=== PATIENT | male | born 1970 | race Caucasian/White ===

== ENCOUNTER 2023-04-28 17:37 | Inpatient (IN) | payer OTHER ==
[2023-04-28 18:44] LABS: Absolute Lymphocytes (CBC) 0.9 K/uL (0.7-4.9); Hematocrit 37.3 % (39.6-49.0); Lymphocytes % 15.7 % (15.3-44.8); MCV 95.3 fL (80-100); MPV 8.4 fL (7.6-11.3); Platelets 94 thou/uL (152-406); RBC Red Blood Cell Count 3.91 M/uL (4.33-5.43)
[2023-04-28] MEDS ORDERED: PANTOPRAZOLE 40 MG INJ ONE (18:48)
[2023-04-28] MEDS ORDERED: ONDANSETRON 4 MG/2 ML VIAL ONE (18:48)
[2023-04-28] MEDS ORDERED: NA CHLORIDE 0.9% 1,000 ML ONE ×3 (18:48→21:24)
[2023-04-28] MEDS ORDERED: FENTANYL CITR 100 MCG/2 ML ONE ×2 (18:48→20:34)
[2023-04-28 19:00] LABS: Protime INR 1.55
[2023-04-28 19:03] LABS: Albumin 3.3 g/dL (3.4-5.0); Bilirubin Direct 0.5 mg/dL (0-0.2); Bilirubin Indirect, Calculated 0.6 mg/dL (0.2-0.8); Bilirubin Total 1.1 mg/dL (0.2-1.0); Magnesium 1.7 mg/dL (1.6-2.4); Potassium 3.6 mEq/L (3.5-5.1); Protein, Total 8.6 g/dL (6.4-8.2); Troponin High Sensitivity 4.1 pg/mL (<58.9); White Blood Cell Scan OK (OK)
[2023-04-28 19:04] LABS: Blood Morphology Comment NOT SEEN (NOT SEEN); Platelet Estimate DECR
--- NOTE | 2023-04-28 19:12 | RAD REPORT ---
EXAM DESCRIPTION: RAD - Chest Single View - 04/28/2023 7:03 pm CLINICAL HISTORY: vomiting Chest pain. COMPARISON: <Comparisons> FINDINGS: Portable technique limits examination quality. The lungs are mildly emphysematous but grossly clear. The heart is normal in size. No displaced fract ures. IMPRESSION: No acute intrathoracic process suspected.
[2023-04-28] MEDS ORDERED: METOCLOPRAMIDE 10 MG/2mL INJ ONE (20:04)
[2023-04-28] MEDS ORDERED: LORazepam 2 MG/ML VIAL ONE (20:05)
--- NOTE | 2023-04-28 20:31 | RAD REPORT ---
EXAM DESCRIPTION: CT - Angio Aorta For Dissection - 04/28/2023 8:05 pm CLINICAL HISTORY: Chest pain radiating to the back. back pain;Abd pain COMPARISON: <Comparisons> TECHNIQUE: CT angiography of the aorta was performed with MIPs. All CT scans are performed using dose optimization technique as appropriate and may include automated exposure control or mA/KV adjustment according to patient size. FINDINGS: A left aortic arch is present with normal branching pattern of the great vessels.No acute aortic finding is seen such as aneurysm, penetrating ulcer or dissection. The celiac axis, SMA, ROSALIO and renal arteries are patent. No evidence of pulmonary embolism. Prominent diffuse emphysema. Several arterial phase enhancing liver lesions are present, the largest is slightly the anterior righ t lobe measuring 8 mm liver size is mildly prominent with subtle nodular contour which may indicate e aminah cirrhosis. Recannulized periumbilical vein is present.There is a 31 x 23 mm rounded mass is pres ent abutting the pancreatic head with a internal fluid density/cystic appearance. The spleen is mildly prominent. Pancreatic parenchyma appears unremarkable. Small stones are present in the gallbladder. No bowel obstruction, free fluid or abscess.Several mildly thickened small bowel loops are present in the left abdomen.No pathologic enlarged lymphadenopathy identified. No fracture or worrisome bone lesion seen. IMPRESSION: No acute aortic finding is demonstrated. 3 cm rounded cystic appearing mass abutting the pancreatic head is of unclear etiology. Recommend MRI of the abdomen for further evaluation. Liver size is prominent with a diffuse fatty liver pattern. Slight nodular appearance to the right lo be of the liver contour may indicate early cirrhosis. Several small enhancing arterial phase liver le sions are seen, nonspecific. These may also be assessed on MRI utilizing liver protocol. Several thickened small bowel loops in the left abdomen could represent portal enteropathy and are no nspecific. Cholelithiasis.
[2023-04-28] MEDS ORDERED: HYDROMORPHONE HCL 1 MG/ML INJ ONE (21:24)
--- NOTE | 2023-04-28 21:42 | RAD REPORT ---
EXAM DESCRIPTION: US - Abdomen Exam Limited - 04/28/2023 9:29 pm CLINICAL HISTORY: EPIGASTRIC PAIN COMPARISON: Angio Aorta For Dissection dated 04/28/2023 FINDINGS: The gallbladder demonstrates tiny stones. No pericholecystic fluid or gallbladder wall thi ckening. The common bile duct is normal measuring 4 mm. The liver demonstrates no findings of intrahepatic biliary dilatation. IMPRESSION: Tiny echogenic stones are present in the gallbladder.
[2023-04-28 21:55] LABS: Barbiturates NEGATIVE (NEGATIVE); Benzodiazepines NEGATIVE (NEGATIVE); Cocaine NEGATIVE (NEGATIVE); METHAMPHETAM NEGATIVE (NEGATIVE); Methadone NEGATIVE (NEGATIVE); Opiates NEGATIVE (NEGATIVE); Phencyclidine NEGATIVE (NEGATIVE); Specific Gravity > 1.030 (1.005-1.030); THC Cannibis NEGATIVE (NEGATIVE); Urine Bacteria None Seen /HPF (<20); Urine Bilirubin NEGATIVE (Negative); Urine Blood Negative (Negative); Urine Clarity Clear (Clear); Urine Color Light-Yellow (Yellow); Urine Glucose NEGATIVE (Negative); Urine Protein NEGATIVE (Negative); Urine RBC None Seen /HPF (None Seen); Urine Urobilinogen Normal (Normal); Urine pH 6.5 (5.0-7.0)
--- NOTE | 2023-04-28 22:11 | ER ---
Nurse's Notes [facility] Name: Larry Whitaker Age: 53 yrs Sex: Male : 1970 Arrival Date: 04/28/2023 Time: 17:37 Bed 20 Private MD: Diagnosis: Other acute pancreatitis without necrosis or infection;Other cholelithiasis without obstruction;Nausea with vomiting, unspecified Presentation: 04/28 17:57 Chief complaint: Patient states: Right abdominal/flank pain for the last 20 minutes nj1 along with vomiting. Denies diarrhea. Coronavirus screen: Vaccine status: Patient reports being unvaccinated. Ebola Screen: Patient denies travel to an Ebola-affected area in the 21 days before illness onset. Initial Sepsis Screen: Does the patient meet any 2 criteria? No. Patient's initial sepsis screen is negative. Does the patient have a suspected source of infection? No. Patient's initial sepsis screen is negative. Risk Assessment: Do you want to hurt yourself or someone else? Patient reports no desire to harm self or others. Onset of symptoms was April 28, 2023 at 17:30. 17:57 Method Of Arrival: Ambulatory [facility] 17:57 Acuity: JOSE 3 nj1 Historical: - Allergies: 18:08 Toradol; nj1 - PMHx: 18:08 Asthma; nj1 - Immunization history:: Client reports having NOT received the Covid vaccine. - Social history:: Smoking status: Patient reports the use of cigarette tobacco products, smokes one pack cigarettes per day. Screenin:00 [facility] ED Fall Risk Assessment (Adult) History of falling in the last 3 months, nv1 including since admission No falls in past 3 months (0 pts) Confusion or Disorientation No (0 pts) Intoxicated or Sedated No (0 pts) Impaired Gait No (0 pts) Mobility Assist Device Used No (0 pt) Altered Elimination No (0 pt) Score/Fall Risk Level 0 - 2 = Low Risk Maintained a safe environment, Hourly rounding (assess needs \T\ fall precautionary measures) done, Used ambulatory aids as needed (educated on \T\ assisted with). Abuse screen: Denies threats or abuse. Nutritional screening: No deficits noted. Tuberculosis screening: No symptoms or risk factors identified. Assessment: 18:00 General: Appears uncomfortable, unkempt, well developed, well nourished, Behavior is me1 cooperative, appropriate for age, anxious, Reports RUQ abdominal pain with nausea that started this evening. hx of gallstones. Pain:. 18:00 Pain: Complains of pain in right upper quadrant Pain does not radiate. Pain radiates to me1 back Pain currently is 10 out of 10 on a pain scale. Quality of pain is described as sharp, shooting, Pain began suddenly, 2 hours ago. Is continuous. Neuro: Level of Consciousness is awake, alert, obeys commands, Oriented to person, place, time, situation, Appropriate for age. Cardiovascular: Capillary refill < 3 seconds Patient's skin is warm and dry. Respiratory: Airway is patent Respiratory effort is even, unlabored, Respiratory pattern is regular, symmetrical. GI: Abdomen is flat, Pt is actively vomiting bile, Bowel sounds present X 4 quads. Abd is soft X 4 quads Reports upper abdominal pain, nausea, vomiting, since earlier this afternoon. 04/29 07:44 Reassessment: attempted to call report to CRYSTAL Horn on 2nd floor. stated he will call nv kc6 back. 08:13 Reassessment: attempted to call report to 2nd floor. no answer at this time. [facility] Vital Signs: 04/28 17:57 BP 118 / 59; Pulse 66; Resp 20; Temp 97.7(O); Pulse Ox 100% on R/A; Weight 70.31 kg; nj1 Height 6 ft. 1 in. ; Pain 10/10; 19:00 BP 98 / 72; Pulse 80; Resp 20; Pulse Ox 100% on R/A; me1 20:27 BP 131 / 78; Pulse 76; Resp 18; Pulse Ox 100% on R/A; me1 20:56 BP 125 / 81; Pulse 71; Resp 18; Pulse Ox 100% on R/A; me1 22:19 BP 115 / 75; Pulse 82; Resp 17; Pulse Ox 100% on R/A; Pain 4/10; me1 23:26 BP 135 / 73; Pulse 80; Resp 18; Pulse Ox 100% on R/A; me1 17:57 Body Mass Index 20.45 (70.31 kg, 185.42 cm) nj 17:57 Pain Scale: Adult nj1 22:19 Pain Scale: Adult nv1 ED Course: 17:40 Patient arrived in ED. mg5 17:44 Benny Matute PA is PHCP. cp 17:44 Sergio Fallon DO is Attending Physician. cp 18:00 Patient has correct armband on for positive identification. Bed in low position. Call me1 light in reach. Side rails up X2. Provided Education on: POC. Verbalized understanding. . 18:00 No provider procedures requiring assistance completed. me1 18:08 Triage completed. nj1 18:08 Arm band placed on. nj1 18:19 Radha Uribe, CRYSTAL is Primary Nurse. me1 18:30 Inserted saline lock: 20 gauge in right antecubital area, using aseptic technique. me1 18:30 Lactate w/ 2H reflex if indic. Sent. me1 18:31 Lipase Sent. me1 18:31 Basic Metabolic Panel Sent. me1 18:31 CBC with Diff Sent. me1 18:31 LFT's Sent. me1 18:31 Magnesium Sent. me1 18:31 Troponin HS Sent. me1 19:05 XRAY Chest (1 view) In Process Unspecified. EDMS 19:19 CT Aorta for Dissection Sent. me1 20:07 CT Aorta for Dissection In Process Unspecified. EDMS 20:[address] Valdivia to call ER for consult. sp 21:31 US Abdomen Limited In Process Unspecified. EDMS 22:09 Constantino Saini MD is Hospitalizing Provider. cp 04/29 07:07 Report given to Keily ROJAS. tm6 08:25 Patient admitted, IV remains in place. kc6 Administered Medications: 04/28 18:47 Drug: Pantoprazole IVP 40 mg IVP once Route: IVP; Site: right antecubital; me1 19:20 Follow up: Response: No adverse reaction me1 18:47 Drug: NS 0.9% IV 1000 ml IV at 1 bolus Per protocol; 1000 mL bolus Route: IV; Rate: 1 me1 bolus; Site: right antecubital; 21:07 Follow up: IV Status: Completed infusion; IV Intake: 1000ml me1 18:47 Drug: fentaNYL (PF) IVP 25 mcg IVP once Route: IVP; Site: right antecubital; me1 19:20 Follow up: Response: No adverse reaction; Pain is unchanged, physician notified me1 18:48 Drug: Ondansetron IVP 4 mg IVP once; over 2 minutes Route: IVP; Site: right antecubital;me1 19:20 Follow up: Response: No adverse reaction me1 18:57 Drug: NS 0.9% IV 1000 ml IV at 1 bolus Per protocol; 1000 mL bolus Route: IV; Rate: 1 me1 bolus; Site: right antecubital; 21:07 Follow up: IV Status: Completed infusion; IV Intake: 1000ml me1 20:26 Drug: fentaNYL (PF) IVP 25 mcg IVP once Route: IVP; Site: right antecubital; me1 21:17 Follow up: Response: No adverse reaction; Pain is unchanged, physician notified me1 21:17 Drug: HYDROmorphone IVP 1 mg IVP once Route: IVP; Site: right antecubital; me1 22:09 Follow up: Response: No adverse reaction; Pain is decreased me1 21:17 Drug: NS 0.9% IV 1000 ml IV at 125 ml/hr continuous Route: IV; Rate: 125 ml/hr; Site: nv1 right antecubital; 22:13 Drug: Piperacillin-Tazobactam IVPB 3.375 grams IVPB once over 60 mins; (mix in NS 100 me1 mL) Route: IVPB; Infused Over: 60 mins; Site: right antecubital; 23:11 Follow up: IV Status: Completed infusion; IV Intake: 100ml me1 23:13 Follow up: Response: No adverse reaction me1 22:25 Drug: Nicoderm CQ Transdermal Patch 21 mg/24 hr 1 patches Transdermal once Route: me1 Transdermal; Site: anterior chest wall; Medication: 18:00 VIS not applicable for this client. me1 Intake: 21:07 IV: 1000ml; Total: 1000ml. me1 21:07 IV: 1000ml; Total: 2000ml. me1 23:11 IV: 100ml; Total: 2100ml. me1 Outcome: 22:10 Decision to Hospitalize by Provider. cp 04/29 08:24 Admitted to Med/surg accompanied by tech, via wheelchair, room 223, with chart, Report kc6 called to CRYSTAL Horn Condition: good Instructed on the need for admit, 09:11 Patient left the ED. kc6 Signatures: Dispatcher [facility] EDDaina Eaton Corey, PA PA cp Campbell, Kaitlyn, RN RN kc6 Isabella Salas RN RN nj1 Radha Uribe RN RN me1 Kathleen Mak mg5 Lu Parsons RN RN tm6 Corrections: (The following items were deleted from the chart) 04/28 20:52 17:57 Chief complaint: Patient states: Right abdominal/flank pain for the last 20 me1 minutes along with vomiting. Denies diarrhea. nj1
--- NOTE | 2023-04-28 22:11 | EDPHYS ---
Physician Documentation [facility] Name: Larry Whitaker Age: 53 yrs Sex: Male : 1970 Arrival Date: 04/28/2023 Time: 17:37 Bed 20 Private MD: ED Physician Sergio Fallon HPI: 04/28 18:05 This 53 yrs old Male presents to ER via Ambulatory with complaints of Low Back Pain, cp Abdominal Pain, Vomiting. 18:05 The patient presents with abdominal pain in the epigastric area, in the right upper cp quadrant. 18:05 Onset: The symptoms/episode began/occurred suddenly, 20 minute(s) ago. Severity of cp symptoms: in the emergency department the symptoms are unchanged, despite home interventions. The symptoms radiate to Associated signs and symptoms: Pertinent positives: nausea and vomiting, chest pain, shortness of breath, Pertinent negatives: constipation, diarrhea, fever, vomiting blood. Historical: - Allergies: 18:08 Toradol; nj1 - PMHx: 18:08 Asthma; nj1 - Immunization history:: Client reports having NOT received the Covid vaccine. - Social history:: Smoking status: Patient reports the use of cigarette tobacco products, smokes one pack cigarettes per day. ROS: 18:10 Constitutional: Positive for poor PO intake, Negative for body aches, chills, fever, cp 18:10 Eyes: Negative for injury, pain, redness, and discharge, cp 18:10 ENT: Negative for drainage from ear(s), ear pain, sore throat, difficulty swallowing, difficulty handling secretions, 18:10 Cardiovascular: Positive for chest pain, Negative for edema, palpitations, 18:10 Respiratory: Negative for cough, wheezing, 18:10 Abdomen/GI: Positive for abdominal pain, nausea and vomiting, Negative for constipation, hematemesis, black/tarry stool, rectal bleeding, 18:10 Back: Positive for radiated pain, of the low back area and mid back area, Negative for injury or acute deformity, decreased range of motion, 18:10 : Negative for urinary symptoms, testicular pain 18:10 Neuro: Negative for altered mental status, dizziness, headache, syncope, weakness, 18:10 All other systems are negative, Exam: 18:15 Constitutional: The patient appears in no acute distress, alert, awake, cp non-diaphoretic, non-toxic, well developed, well nourished, in obvious pain, uncomfortable, 18:15 Head/Face: Normocephalic, atraumatic. cp 18:15 Eyes: Periorbital structures: appear normal, Conjunctiva: normal, no exudate, no injection, Sclera: no appreciated abnormality, Lids and lashes: appear normal, bilaterally, 18:15 ENT: External ear(s): are unremarkable, Nose: is normal, Mouth: Lips: moist, Oral mucosa: pink and intact, moist, Posterior pharynx: Airway: no evidence of obstruction, patent, erythema, is not appreciated, exudate, is not appreciated, 18:15 Neck: ROM/movement: is normal, is supple, without pain, no range of motions limitations, no meningismus, no nuchal rigidity, 18:15 Chest/axilla: Inspection: normal, Palpation: is normal, no crepitus, no tenderness, 18:15 Cardiovascular: Rate: normal, Rhythm: regular, Edema: is not appreciated, JVD: is not appreciated, 18:15 Respiratory: the patient does not display signs of respiratory distress, Respirations: normal, no use of accessory muscles, no retractions, labored breathing, is not present, Breath sounds: are clear throughout, no decreased breath sounds, no stridor, no wheezing, 18:15 Abdomen/GI: Inspection: abdomen appears normal, Bowel sounds: active, all quadrants, Palpation: soft, in all quadrants, severe abdominal tenderness, in the epigastric area and right upper quadrant, rebound tenderness, is not appreciated, voluntary guarding, is elicited in the epigastric area and right upper quadrant, no appreciated organomegaly, 18:15 Back: pain, that is moderate, of the low back area and mid back area, ROM is painful, with all movement, 18:15 Neuro: Orientation: to person, place \T\ time. Mentation: is normal, Motor: moves all fours, strength is normal, 18:49 ECG was reviewed by the Attending Physician. cp Vital Signs: 17:57 BP 118 / 59; Pulse 66; Resp 20; Temp 97.7(O); Pulse Ox 100% on R/A; Weight 70.31 kg; nj1 Height 6 ft. 1 in. ; Pain 10/10; 19:00 BP 98 / 72; Pulse 80; Resp 20; Pulse Ox 100% on R/A; me1 20:27 BP 131 / 78; Pulse 76; Resp 18; Pulse Ox 100% on R/A; me1 20:56 BP 125 / 81; Pulse 71; Resp 18; Pulse Ox 100% on R/A; me1 22:19 BP 115 / 75; Pulse 82; Resp 17; Pulse Ox 100% on R/A; Pain 4/10; me1 23:26 BP 135 / 73; Pulse 80; Resp 18; Pulse Ox 100% on R/A; me1 17:57 Body Mass Index 20.45 (70.31 kg, 185.42 cm) nj1 17:57 Pain Scale: Adult nj1 22:19 Pain Scale: Adult me1 MDM: 17:49 Patient medically screened. cp 22:05 Data reviewed: vital signs, nurses notes, lab test result(s), EKG, radiologic studies, cp CT scan, plain films, ultrasound. 22:05 Management of patient was discussed with the following: Welfare Project Manager: DR Cardozo will cp consult on patient and requests mrcp. Dr Tovar will consult on patient. I considered the following discharge prescriptions or medication management in the emergency department Medications were administered in the Emergency Department. See MAR. Independent interpretation of the following test(s) in the Emergency Department EKG: See my EKG interpretation above. 22:10 Management of patient was discussed with the following: Hospitalist: DR Saini will cp admit to hospitalist services after discussion. 04/28 18:01 Order name: Basic Metabolic Panel; Complete Time: 19:10 04/28 19:45 Interpretation: Normal except: NA 135; GLUC 146. 04/28 18:01 Order name: CBC with Diff; Complete Time: 19:10 04/28 19:45 Interpretation: Normal except: RBC 3.91; HGB 12.3; HCT 37.3; PLT 94; RDW 16.6. 04/28 18:01 Order name: LFT's; Complete Time: 19:10 12 19:45 Interpretation: Normal except: AST 92; ALT 83; ALK 125; BILIT 1.1; BILID 0.5; TP 8.6; cp ALB 3.3; GLOB 5.3; A/G 0.6. 04/28 18: Order name: Magnesium; Complete Time: 19:10 12/10 18:01 Order name: PT-INR; Complete Time: 19:10 cp /10 18:01 Order name: Troponin HS; Complete Time: 19:10 cp /10 18:11 Order name: Lipase; Complete Time: 19:17 cp 10 18:11 Order name: Lactate w/ 2H reflex if indic.; Complete Time: 19:10 cp /10 18:50 Order name: CBC Smear Scan; Complete Time: 19:10 EDMS 04/28 19:33 Order name: ETOH Level; Complete Time: 21:45 cp /10 19:33 Order name: Blood Culture Adult (2) cp /10 19:33 Order name: AMMONIA; Complete Time: 21:45 cp /10 19:33 Order name: Urinalysis W/Microscopic; Complete Time: 21:55 cp /10 19:33 Order name: UDS; Complete Time: 21:55 cp /10 23:18 Order name: Lactate Sepsis 2 HR Follow-up EDMS 04/29 04:58 Order name: CBC with Manual Differential EDMS 04/29 05:21 Order name: Comprehensive Metabolic Panel EDMS 04/29 05:21 Order name: Lipase EDMS 04/28 18:01 Order name: XRAY Chest (1 view); Complete Time: 19:16 cp 10 19:17 Order name: CT Aorta for Dissection; Complete Time: 20:36 cp 10 20:45 Order name: US Abdomen Limited; Complete Time: 21:45 cp 10 21:45 Interpretation: Report reviewed. cp /10 18:01 Order name: EKG; Complete Time: 18:02 cp /10 18:01 Order name: Cardiac monitoring; Complete Time: 18:48 cp /10 18:01 Order name: EKG - Nurse/Tech; Complete Time: 18:48 cp /10 18:01 Order name: IV Saline Lock; Complete Time: 18:31 cp /10 18:01 Order name: Labs collected and sent; Complete Time: 18:31 cp /10 18:01 Order name: O2 Per Protocol; Complete Time: 18:31 cp /10 18:01 Order name: O2 Sat Monitoring; Complete Time: 18:31 cp /10 19:17 Order name: NPO; Complete Time: 19:19 cp EC:49 Rate is 72 beats/min. Rhythm is regular. PA interval is normal. QRS interval is normal. cp QT interval is prolonged. T waves are Inverted in lead aVR. Interpreted by me. Reviewed by me. Administered Medications: 18:47 Drug: Pantoprazole IVP 40 mg IVP once Route: IVP; Site: right antecubital; me1 19:20 Follow up: Response: No adverse reaction me1 18:47 Drug: NS 0.9% IV 1000 ml IV at 1 bolus Per protocol; 1000 mL bolus Route: IV; Rate: 1 me1 bolus; Site: right antecubital; 21:07 Follow up: IV Status: Completed infusion; IV Intake: 1000ml me1 18:47 Drug: fentaNYL (PF) IVP 25 mcg IVP once Route: IVP; Site: right antecubital; me1 19:20 Follow up: Response: No adverse reaction; Pain is unchanged, physician notified me1 18:48 Drug: Ondansetron IVP 4 mg IVP once; over 2 minutes Route: IVP; Site: right antecubital;me1 19:20 Follow up: Response: No adverse reaction me1 18:57 Drug: NS 0.9% IV 1000 ml IV at 1 bolus Per protocol; 1000 mL bolus Route: IV; Rate: 1 me1 bolus; Site: right antecubital; 21:07 Follow up: IV Status: Completed infusion; IV Intake: 1000ml me1 20:26 Drug: fentaNYL (PF) IVP 25 mcg IVP once Route: IVP; Site: right antecubital; me1 21:17 Follow up: Response: No adverse reaction; Pain is unchanged, physician notified me1 21:17 Drug: HYDROmorphone IVP 1 mg IVP once Route: IVP; Site: right antecubital; me1 22:09 Follow up: Response: No adverse reaction; Pain is decreased me1 21:17 Drug: NS 0.9% IV 1000 ml IV at 125 ml/hr continuous Route: IV; Rate: 125 ml/hr; Site: nd1 right antecubital; 22:13 Drug: Piperacillin-Tazobactam IVPB 3.375 grams IVPB once over 60 mins; (mix in NS 100 me1 mL) Route: IVPB; Infused Over: 60 mins; Site: right antecubital; 23:11 Follow up: IV Status: Completed infusion; IV Intake: 100ml me1 23:13 Follow up: Response: No adverse reaction me1 22:25 Drug: Nicoderm CQ Transdermal Patch 21 mg/24 hr 1 patches Transdermal once Route: me1 Transdermal; Site: anterior chest wall; Disposition: 19:13 I was immediately available on-site in the Emergency Department for consultation in the ms3 care of the patient. Disposition Summary: 04/28/23 22:10 Hospitalization Ordered Notes: Hospitalization Status: Inpatient Admission cp Provider: Constantino Saini cp Condition: Stable cp Problem: new cp Symptoms: have improved cp Bed/Room Type: Standard cp Location: Telemetry/MedSurg (Inpatient)(04/29/23 07:40) bd Room Assignment: [facility](04/29/23 07:40) bd Diagnosis - Other acute pancreatitis without necrosis or infection cp - Other cholelithiasis without obstruction cp - Nausea with vomiting, unspecified cp Forms: - Medication Reconciliation Form cp - SBAR form cp - Leadership Thank You Letter cp Signatures: Dispatcher [employer] EDKaryna Lewis Corey, PA PA cp Regina Carver, RN RN Sergio Abreu DO DO ms3 Isabella Salas RN RN nj1 Radha Uribe RN RN me1 Corrections: (The following items were deleted from the chart) 04/29 01:10 04/28 22:10 Telemetry/MedSurg (Inpatient) cp cg 04/29 01:10 12 22:10 cp cg 04/29 07:40 01:10 [facility] ER HOLD cg bd 07:40 01:10 ERHOLD- cg bd
[2023-04-28] MEDS ORDERED: NA CHLORIDE 0.9% 100 ML ONE (22:25)
[2023-04-28] MEDS ORDERED: PIPERACIL/TAZO 3.375 GM VIAL IV ONE (22:26)
[2023-04-28] MEDS ORDERED: NICOTINE 21 MG/PAT TD ONE (22:38)
[2023-04-28] MEDS ORDERED: ACETAMINOPHEN 325 MG TABLET PO PRN (23:25)
--- NOTE | 2023-04-28 23:29 | P.HP ---
Certification for Inpatient Patient admitted to: Inpatient With expected LOS: >2 Midnights Practitioner: I am a practitioner with admitting privileges, knowledge of patient current condition, hospital course, and medical plan of care. Services: Services provided to patient in accordance with Admission requirements found in Title 42 Section 412.3 of the Code of Federal Regulations Patient History Date of Service: 04/29/23 Reason for admission: Abdominal pain, pancreas mass, gallstones. History of Present Illness: 53-year-old male patient with medical history significant for episode of abdominal pain in the past who came to the ED with complaint of abdominal pain. Pain is located in the upper region of the abdomen with radiation to the back. Pain is rated 8-10 out of 10 in intensity and it was case scenario. No associated nausea, vomiting, fever, chills. He had a CT of the abdomen/pelvis done that showed a 3 cm pancreas mass and abdominal ultrasound revealed tiny s tones in the gallbladder. No evidence of cholecystitis. He had elevated transaminases so he was asked to be evaluated by gastroenterology and was admitted for inpatient care. Allergies ketorolac [From Toradol] Allergy (Verified 04/28/23 22:45) Hives/Rash Review of Systems General: Unremarkable Eyes: Unremarkable ENT: Unremarkable Respiratory: Unremarkable Cardiovascular: Unremarkable Gastrointestinal: Abdominal Pain Genitourinary: Unremarkable Musculoskeletal: Unremarkable Integumentary: Unremarkable Neurological: Unremarkable Physical Examination - Physical Exam General: Alert, Oriented x3 HEENT: Atraumatic Neck: Supple Respiratory: Normal air movement Cardiovascular: Regular rate/rhythm, Normal S1 S2 Gastrointestinal: Soft and benign Musculoskeletal: No swelling Neurological: Normal speech, Normal strength at 5/5 x4 extr - Studies Laboratory Data (last 24 hrs) 04/28/23 04/28/23 04/28/23 18:28 18:28 18:28 WBC 5.70 Hgb 12.3 L Hct 37.3 L Plt Count 94 L PT 16.8 H INR 1.55 Sodium Potassium BUN Creatinine Glucose Magnesium Total Bilirubin AST ALT Alkaline Phosphatase Lipase 415 H 04/28/23 18:28 WBC Hgb Hct Plt Count PT INR Sodium 135 L Potassium 3.6 BUN 10 Creatinine 0.92 Glucose 146 H Magnesium 1.7 Total Bilirubin 1.1 H AST 92 H ALT 83 H Alkaline Phosphatase 125 H Lipase Assessment and Plan - Plan Pancreatitis: Patient has elevated lipase, imaging finding of pancreas mass and gallstones. We think he has gallstone pancreatitis. Gastroenterology consult placed Continue pain control with Dilaudid. Continue IV lactated Ringer's for hydration purposes Transaminitis: Will have gastroenterology evaluate patient for episode of gallstones causing issues in the liver. Cholelithiasis: Abdominal ultrasound confirmed gallstones without cholecystitis. Pain control with as needed Dilaudid to be continued. IV hydration to be continued. Mis Manager to evaluate. Prophylaxis: Lovenox for DVT prophylaxis CODE STATUS: Full code Disposition: We will treat his abdominal pain and manage his pancreatitis and will be discharged once he is cleared by gastroenterology service. - Advance Directives Does patient have a Living Will: No Does patient have a Durable POA for Healthcare: No
[2023-04-28] MEDS: Ringers Lactate 1,000 ML IV SCH (23:45)
[2023-04-29] MEDS ORDERED: Ringers Lactate 1,000 ML IV ONE ×2 (00:01→07:37)
[2023-04-29] MEDS: HYDROMORPHONE HCL 0.5 MG/0.5 ML INJ IV PRN ×3 (03:34→22:36)
[2023-04-29] MEDS ORDERED: HYDROMORPHONE HCL 0.5 MG/0.5 ML INJ ONE ×2 (03:37→07:37)
[2023-04-29 04:57] LABS: Absolute Lymphocytes (CBC) 1.2 K/uL (0.7-4.9); Hematocrit 32.8 % (39.6-49.0); Lymphocytes % 22.1 % (15.3-44.8); MCV 95.3 fL (80-100); MPV 8.4 fL (7.6-11.3); Platelets 80 thou/uL (152-406); RBC Red Blood Cell Count 3.44 M/uL (4.33-5.43)
[2023-04-29 05:12] LABS: Smudge Cells 1
[2023-04-29 05:13] LABS: Blood Morphology Comment NOT SEEN (NOT SEEN); Platelet Estimate DECR
[2023-04-29 05:15] LABS: Albumin 2.8 g/dL (3.4-5.0); Bilirubin Total 1.1 mg/dL (0.2-1.0); Potassium 3.7 mEq/L (3.5-5.1); Protein, Total 7.3 g/dL (6.4-8.2)
[2023-04-29] MEDS: Ringers Lactate 1,000 ML IV SCH ×4 (07:29→23:32)
[2023-04-29] MEDS ORDERED: ENOXAPARIN 40 MG/0.4 ML SQ SCH (09:00)
--- NOTE | 2023-04-29 09:29 | P.PN ---
Subjective Date of Service: 04/29/23 Chief Complaint: Abdominal pain, pancreas mass, gallstones. RUQ tenderness pain 4/10, improved, no reported NVD. currently NPO Physical Examination - Physical Exam General: Alert, Oriented x3 HEENT: Atraumatic Neck: Supple Respiratory: Normal air movement Cardiovascular: Regular rate/rhythm, Normal S1 S2 Gastrointestinal: RUQ tenderness, no rebound tenderness Musculoskeletal: No swelling Neurological: Normal speech, Normal strength at 5/5 x4 extr Review of Systems per HPI Physical Examination - Vital Signs Temperature: 98.5 F Blood Pressure: 137/90 Pulse: 81 Respirations: 17 Pulse Ox (%): 100 - Studies Laboratory Data (last 24 hrs) 04/28/23 04/28/23 04/28/23 18:28 18:28 18:28 WBC 5.70 Hgb 12.3 L Hct 37.3 L Plt Count 94 L PT 16.8 H INR 1.55 Sodium Potassium BUN Creatinine Glucose Magnesium Total Bilirubin AST ALT Alkaline Phosphatase Lipase 415 H 04/28/23 18:28 WBC Hgb Hct Plt Count PT INR Sodium 135 L Potassium 3.6 BUN 10 Creatinine 0.92 Glucose 146 H Magnesium 1.7 Total Bilirubin 1.1 H AST 92 H ALT 83 H Alkaline Phosphatase 125 H Lipase Assessment And Plan - Plan - Plan Pancreatitis: Patient has elevated lipase, imaging finding of pancreas mass and gallstones. We think he has gallstone pancreatitis. Gastroenterology consult placed Continue pain control with Dilaudid. Continue IV lactated Ringer's for hydration purposes Trend lipase, trending down 450-140 Transaminitis: Will have gastroenterology evaluate patient for episode of gallstones causing issues in the liver. Cholelithiasis: Abdominal ultrasound confirmed gallstones without cholecystitis. Pain control with as needed Dilaudid to be continued. IV hydration to be continued. Surgery consulted n.p.o. after midnight 03/31/2023 MRCP IMPRESSION: Findings suggestive of acute cholecystitis. Gallbladder sludge and small layering stones near the gallbladder neck. Mild free perihepatic ascites. Pancreatic head 3.0 cm cyst, appears to have proteinaceous content, with no suspicious enhancement. Per the ACR white paper for incidental pancreatic cystic lesions, this is considered low risk for pancreatic malignancy by imaging criteria. A six-month follow-up pancreatic protocol MRI is recommended for evaluation, for a total period of 2 years initially. No intra or extrahepatic biliary ductal dilation. The Prophylaxis: Lovenox for DVT prophylaxis CODE STATUS: Full code NPO after MN Disposition: We will treat his abdominal pain and manage his pancreatitis and will be discharged once he is cleared by gastroenterology, surgery service. Discharge Plan: Home - Code Status/Comfort Care Code Status: Full Code Physician Review: Patient Assessed, Agree with Above Assessment and Plan Critical Care: No Time Spent Managing PTS Care (In Minutes): 35
[2023-04-29] MEDS: NICOTINE 21 MG/PAT TD SCH (09:39)
[2023-04-29] MEDS ORDERED: DIPHENHYDRAMINE 50 MG/ML VIAL IV ONE (10:15)
--- NOTE | 2023-04-29 10:29 | RAD REPORT ---
EXAM DESCRIPTION: MRI - Cholangiogram, MRI abdomen with and without contrast - 04/29/2023 9:04 am CLINICAL HISTORY: elevated liver enzymes, cholelithiasis COMPARISON: Abdomen WWo Cont dated 04/29/2023; Abdomen Exam Limited dated 04/28/2023; Angio Aorta F or Dissection dated 04/28/2023 TECHNIQUE: Multiplanar multisequence MRI of the abdomen, obtained before after intravenous adminis tration of 16 mL MultiHance. MRCP sequences were also obtained. FINDINGS: The gallbladder is mildly distended. [id number] pericholecystic fluid. Mild mucosal hyperenhancement throughout the gallbladder. Layering intrinsically T1 hyperintense sludge within the lumen. Small filling defects present dependently near the neck suggestive of small calculi. Calcific densities near the fundus seen on CT show no correlate on MRI. No intrahepatic biliary ductal dilation. Common bile duct is at the upper limit of normal in caliber, 7 millimeter. No filling defects to sugg est choledocholithiasis. Smooth tapering near the ampulla. Main pancreatic duct is not dilated. Mild perihepatic ascites, extending into the Morison pouch. Ovoid well-circumscribed thin-walled 3.0 x 2.2 cm cyst in the posterior pancreatic head demonstrates homogeneous T1 and T2 hyperintense signal, with no appreciable enhancement on the postcontrast phases . No appreciable wall thickening or nodular solid components. The cyst does not appear to communicate with the pancreatic duct or common bile duct. The visualized aspects of the liver, spleen, adrenal glands, and kidneys are otherwise unremarkable, apart from small right parapelvic renal cysts. Visualized aspects of the bowel are unremarkable. No suspicious osseous lesions. Trace right pleural effusion. IMPRESSION: Findings suggestive of acute cholecystitis. Gallbladder sludge and small layering stones near the gallbladder neck. Mild free perihepatic ascites. Pancreatic head 3.0 cm cyst, appears to have proteinaceous content, with no suspicious enhancement. P er the ACR white paper for incidental pancreatic cystic lesions, this is considered low risk for panc reatic malignancy by imaging criteria. A six-month follow-up pancreatic protocol MRI is recommended f or evaluation, for a total period of 2 years initially. No intra or extrahepatic biliary ductal dilation.
--- NOTE | 2023-04-29 11:05 | RAD REPORT ---
EXAM DESCRIPTION: MRI - Abdomen WWo Cont - 04/29/2023 9:04 am CLINICAL HISTORY: eval of pancreas head cystic mass COMPARISON: Cholangiogram dated 04/29/2023; Abdomen Exam Limited dated 04/28/2023; Angio Aorta For Dissection dated 04/28/2023 TECHNIQUE: Multiplanar multisequence MRI of the abdomen, obtained before after intravenous administr ation of 16 mL MultiHance. MRCP sequences were also obtained. FINDINGS: The gallbladder is mildly distended. [id number] pericholecystic fluid. Mild mucosal hyperenhancement throughout the gallbladder. Layering intrinsically T1 hyperintense sludge within the lumen. Small filling defects present dependently near the neck suggestive of small calculi. Calcific densities near the fundus seen on CT show no correlate on MRI. No intrahepatic biliary ductal dilation. Common bile duct is at the upper limit of normal in caliber, 7 millimeter. No filling defects to sugg est choledocholithiasis. Smooth tapering near the ampulla. Main pancreatic duct is not dilated. Mild perihepatic ascites, extending into the Morison pouch. Ovoid well-circumscribed thin-walled 3.0 x 2.2 cm cyst in the posterior pancreatic head demonstrates homogeneous T1 and T2 hyperintense signal, with no appreciable enhancement on the postcontrast phases . No appreciable wall thickening or nodular solid components. The cyst does not appear to communicate with the pancreatic duct or common bile duct. The visualized aspects of the liver, spleen, adrenal glands, and kidneys are otherwise unremarkable, apart from small right parapelvic renal cysts. Visualized aspects of the bowel are unremarkable. No suspicious osseous lesions. Trace right pleural effusion. IMPRESSION: Findings suggestive of acute cholecystitis. Gallbladder sludge and small layering stones near the gallbladder neck. Mild free perihepatic ascites. Pancreatic head 3.0 cm cyst, appears to have proteinaceous content, with no suspicious enhancement. P er the ACR white paper for incidental pancreatic cystic lesions, this is considered low risk for panc reatic malignancy by imaging criteria. A six-month follow-up pancreatic protocol MRI is recommended f or evaluation, for a total period of 2 years initially. No intra or extrahepatic biliary ductal dilation.
[2023-04-30 01:08] VITALS: BMI 20.5
[2023-04-30 03:29] LABS: Absolute Lymphocytes (CBC) 1.1 K/uL (0.7-4.9); Hematocrit 31.7 % (39.6-49.0); Lymphocytes % 30.8 % (15.3-44.8); MCV 95.6 fL (80-100); MPV 8.3 fL (7.6-11.3); RBC Red Blood Cell Count 3.31 M/uL (4.33-5.43)
[2023-04-30 03:33] LABS: Platelets 83 thou/uL (152-406)
[2023-04-30 03:44] LABS: Albumin 2.7 g/dL (3.4-5.0); Bilirubin Total 1.3 mg/dL (0.2-1.0); Potassium 3.6 mEq/L (3.5-5.1)
[2023-04-30] MEDS: Ringers Lactate 1,000 ML IV SCH ×3 (06:00→21:06)
--- NOTE | 2023-04-30 08:30 | P.PN ---
Subjective Date of Service: 04/30/23 Chief Complaint: Abdominal pain, pancreas mass, gallstones. pain, nausea controlled with prn analgesics, Physical Examination - Physical Exam General: Alert, Oriented x3 HEENT: Atraumatic Neck: Supple Respiratory: Normal air movement Cardiovascular: Regular rate/rhythm, Normal S1 S2 Gastrointestinal: RUQ tenderness, no rebound tenderness Musculoskeletal: No swelling Neurological: Normal speech, Normal strength at 5/5 x4 extr Review of Systems per HPI Physical Examination - Vital Signs Temperature: 98.2 F Blood Pressure: 132/73 Pulse: 69 Respirations: 18 Pulse Ox (%): 97 Assessment And Plan - Plan - Plan Pancreatitis: Patient has elevated lipase, imaging finding of pancreas mass and gallstones. We think he has gallstone pancreatitis. Gastroenterology consult placed Continue pain control with Dilaudid. Continue IV lactated Ringer's for hydration purposes Trend lipase, trending down 450-140 Transaminitis: Will have gastroenterology evaluate patient for episode of gallstones causing issues in the liver. acute cholecytitis Cholelithiasis: Abdominal ultrasound confirmed gallstones without cholecystitis. Pain control with as needed Dilaudid to be continued. IV hydration to be continued. Surgery consulted n.p.o. after midnight 03/31/2023 Zosyn added MRCP IMPRESSION: Findings suggestive of acute cholecystitis. Gallbladder sludge and small layering stones near the gallbladder neck. Mild free perihepatic ascites. Pancreatic head 3.0 cm cyst, appears to have proteinaceous content, with no suspicious enhancement. Per the ACR white paper for incidental pancreatic cystic lesions, this is considered low risk for pancreatic malignancy by imaging criteria. A six-month follow-up pancreatic protocol MRI is recommended for evaluation, for a total period of 2 years initially. No intra or extrahepatic biliary ductal dilation. The Prophylaxis: Lovenox for DVT prophylaxis CODE STATUS: Full code NPO after MN Disposition: We will treat his abdominal pain and manage his pancreatitis and will be discharged once he is cleared by gastroenterology, surgery service. Discharge Plan: Home Plan to discharge in: 48 Hours - Code Status/Comfort Care Code Status: Full Code Physician Review: Patient Assessed, Agree with Above Assessment and Plan Critical Care: No Time Spent Managing PTS Care (In Minutes): 35
[2023-04-30] MEDS: NICOTINE 21 MG/PAT TD SCH (08:43)
[2023-04-30] MEDS: HYDROMORPHONE HCL 0.5 MG/0.5 ML INJ IV PRN ×2 (08:43→19:59)
[2023-04-30] MEDS: PIPER TAZO 3.375 GM in NA CHLORIDE 0.9% 100 ML IV SCH ×2 (08:43→17:43)
[2023-04-30] MEDS ORDERED: LIDOCAINE 2% MPF 5 ML VIAL ONE ×2 (11:03→12:54)
[2023-04-30] MEDS ORDERED: propofoL 200 MG/20 ML VIAL IV ONE ×2 (11:03→12:54)
[2023-04-30] MEDS ORDERED: MIDAZOLAM HCL 2 MG/2 ML INJ ONE ×2 (11:03→12:54)
[2023-04-30] MEDS ORDERED: ROCURONIUM 50 MG/5 ML VIAL IV ONE ×2 (11:03→12:54)
[2023-04-30] MEDS ORDERED: FENTANYL CITR 100 MCG/2 ML ONE ×2 (11:03→12:54)
[2023-04-30] MEDS ORDERED: ONDANSETRON 4 MG/2 ML VIAL ONE ×2 (11:03→12:54)
[2023-04-30] MEDS ORDERED: HYDROMORPHONE HCL 2 MG/ML inj ONE (11:11)
[2023-04-30] MEDS ORDERED: BUPIVACAINE 0.25% PF 30 ML VIAL ONE (11:12)
--- NOTE | 2023-04-30 11:25 | CON ---
Date of Consultation: 04/29/2023 Brief History Of Present Illness: The patient is a 53-year-old male with past medical history signif icant for episodes of abdominal pain for the past in the right upper quadrant epigastric region and h istory of pancreatitis with a known pancreatic cyst for approximately 5-6 years by his description. He states he has been tracking access with his primary medical doctor and has found no significant ch mingo in the area. They have attempted interventions such as a biopsy at that point, however, he has significantly low platelets of uncertain etiology and as such he has not had the area properly biopsi ed to his recollection and had this originally planned in the future after his thrombocytopenia was w orked up and . He has noted that on this particular occasion, the pain was worse in the ep igastric and right upper quadrant, which was similar to episodes before in the past, but now worse in the right upper quadrant that he has had before in the past. There is some radiation at the back, i t was 8/10 in intensity. There was no nausea, vomiting, fever, chills, or any other concomitant find ings. His pain is significantly improved, but not resolved at this point. The episode began approxi mately 2-3 days prior to his presentation at the ER on this occasion. Past Medical History: Thrombocytopenia, pancreatic cyst, gallstones. Past Surgical History: He believes he has had an ERCP or EUS, endoscopic ultrasound I should say, to evaluate his pancreas, but denies any formal abdominal surgery. Allergies: TO TORADOL. Social History: Smoking, he smokes cigarettes. He has a history of alcohol use in the past, but den ies current usage. Denies recreational drug use. He is currently unemployed. Physical Examination: At the time of my examination, General: He is awake, alert, and oriented. Psychiatric: Appropriate and conversive. HEENT: Normocephalic. His sclerae are anicteric. His mucous membranes are moist. His oropharynx i s clear. He has very poor dentition with multiple broken teeth. Neck: Supple without JVD. Chest: Normal expansion to excursion. Cardiovascular: Regular rate and rhythm. Pulmonary: Clear to auscultation bilaterally. Abdomen: Soft with positive epigastric and right upper quadrant tenderness to palpation, is nondiste nded. There is no focal peritonitis. Kirkpatrick sign is negative at this time. Extremities: No clubbing, cyanosis, or edema. Skin: Warm and dry. Laboratory Data: Revealed a white blood cell count 5.6, hemoglobin is 11.2, hematocrit 32.8, platele t count was 80, neutrophils are 58%. His PT was 16.8, INR 1.55. Sodium 138, potassium 3.7, chloride 110, carbon dioxide is 22, BUN 9, creatinine 0.9, glucose is 109. His lactic acid is 1 on admission . Total bilirubin 1.1, his AST is 68, ALT is 65, alkaline phosphatase is 88, lipase is 415, on admis bautista at 140. His urinalysis was essentially negative. His tox screen was also negative including se rum alcohol. He had imaging performed, which included an ultrasound of the abdomen, which showed tin y echogenic stones present in the gallbladder. No intrahepatic biliary ductal dilatation. No gallbl adder wall thickening. No pericholecystic fluid. Common bile duct was normal at [address] angio for aortic transection protocol, 3 cm rounded cystic-appearing mass abutting the pancreatic hea d, unclear etiology was noted. Liver size is prominent with diffuse fatty liver. Slightly nodular a ppearance of the right lobe of the liver contour may indicate early cirrhosis. There is small enhanc ing arterial phase liver lesions, which are nonspecific. Cholelithiasis is noted as well and has non specific enteritis picture. He had an MRI of the abdomen, which is officially read as findings sugge stive of acute cholecystitis, gallbladder sludge and small layering stones near the gallbl adder neck, mild free perihepatic ascites. Pancreatic head 3 cm cyst appears a proteinaceous content , which is with no suspicious enhancements. Low risk for pancreatic malignancy. No intrahepatic or extrahepatic biliary ductal dilatation noted. Common bile duct is at the upper limits of normal at 7 mm. No filling defects to suggest choledocholithiasis. Smooth tapering near the ampulla. Main butterfield creatic duct is not dilated. Mild perihepatic ascites extending to Morison's pouch. Assessment And Plan: This is a 53-year-old male who comes in with signs and symptoms of acute pancre atitis and possible concomitant cholecystitis. 1.IV fluid hydration. 2.Antibiotic coverage. 3.Continue medical management. 4.I have explained the risks, benefits, and alternatives of laparoscopic possible open cholecystecto my with ICG, indocyanine green cholangiography, possible intraoperative contrast cholangiography, pos sible laparoscopic common bile duct exploration. Indicated procedure including, but are not limited to bleeding, infection, damage to surrounding tissues, injury to bile ducts, intestines, need further operation and procedures, heart attack, strokes, blood clots, perioperative complications, _ and including anesthesia, non-anesthesia related issues. I will proceed when his pancreatitis is i mproved likely next day. The patient and his family displayed understanding the above-stated plan an d agreed to proceed as indicated. BRITANY/MOSES Voice ID: [id number] Report ID: [id number]
[2023-04-30] MEDS ORDERED: KETOROLAC 30 MG/ML INJ ONE (12:54)
[2023-04-30] MEDS ORDERED: dexAMETHasone 10 MG/ML VIAL ONE (12:54)
[2023-04-30] MEDS ORDERED: Ringers Lactate 1,000 ML IV ONE (13:01)
--- NOTE | 2023-04-30 13:48 | EKG ---
Test Date: 2023-04-28 Test Time: 18:45:04 Spinner Open End: MEASUREMENT RESULTS: Intervals: Rate: 72 MA: 136 QRSD: 88 QT: 462 QTc: 505 Merritt: P: 74 MA: 136 QRS: 83 T: 87 INTERPRETIVE STATEMENTS: Normal sinus rhythm Prolonged QT Abnormal ECG No previous ECG available for comparison Electronically Signed On 04-30-23 13:41:21 DIRECTOR HOSPICE OPERATIONS by Royer Ludwig
[2023-04-30] MEDS ORDERED: NS 0.9% VIAL 10 ML ONE (14:38)
[2023-04-30] MEDS ORDERED: VECURONIUM 10 MG/VIAL IV ONE (14:38)
[2023-04-30] MEDS ORDERED: NEOSTIGMINE 1 MG/ML -10 ML VIAL ONE (15:39)
[2023-04-30] MEDS ORDERED: GLYCOPYRROLATE 0.2 MG/ML SYR ONE (15:39)
--- NOTE | 2023-04-30 15:46 | P.OP ---
Preoperative diagnosis: Acute Calculous Cholecystitis Postoperative diagnosis: Acute Calculous Cholecystitis Primary procedure: Laparoscopic cholecystectomy with ICG Cholangiography Anesthesia: GETA + Local Estimated blood loss: <50cc Specimen: Gallbladder Findings: Cirrosis, Severe Inflammation, Large Midline Varices, Short Cystic Duct Complications: None Implants: Suzi Clotting Matrix Powder Transferred to: Recovery Room Condition: Good
[2023-04-30] MEDS: HYDROMORPHONE HCL 1 MG/ML INJ ONE ×4 (16:02→16:23)
[2023-04-30] MEDS: MEPERIDINE HCL 25 MG/ML SYR ONE ×3 (16:29→16:43)
[2023-04-30] MEDS: ONDANSETRON 4 MG/2 ML VIAL IV PRN (19:59)
--- NOTE | 2023-04-30 21:20 | OP ---
Date of Procedure: 04/30/2023 Surgeon: Jerrod Tovar MD, Preoperative Diagnosis: Acute calculous cholecystitis. Postoperative Diagnosis: Acute calculous cholecystitis. Procedure Performed: Laparoscopic cholecystectomy with indocyanine green cholangiography. Anesthesia: General endotracheal plus local with 0.25% Marcaine. Estimated Blood Loss: Less than 15 cc. Specimen: Gallbladder. Findings: 1.Significant and severe cirrhosis. 2.Severe inflammation of the right upper quadrant with very dense adhesions to the anterior surface of the gallbladder between multiple structures including the colon, the stomach, the omentum. 3.The patient had a large ropy midline and periumbilical varices. 4.The patient had a very short cystic duct. 5.The patient had significant inflammatory rind which was thick and fibrous covering the majority of the gallbladder, making visualization of the gallbladder wall even challenging. Complications: None. Implants: Suzi clotting matrix powder applied. Disposition: Patient transferred to recovery room in good condition. Procedure In Detail: After informed consent was obtained, patient was brought to the operating room, prepped and draped in the usual sterile fashion after adequate anesthesia was achieved, anesthetized the supraumbilical area with 0.25% Marcaine, sharply incised, and a 5 mm trocar was placed under dir ect visualization without evidence of complication. Insufflation was obtained to 15 mmHg at this britney e. There was no injury to vital structures upon entry into the abdomen. 3 additional trocars were p laced, 1 in the epigastric, 1 in the right upper quadrant, 1 in the right lower quadrant. All of the se were similarly anesthetized, sharply incised. A 5 mm trocar was placed under direct visualization without evidence of complication. The umbilical trocar was then upsized to a 12 mm under direct vis ualization without evidence of complication. At this point, the patient positioned head up right-shaye ed up position. Ratcheted graspers were used to grasp the patient's omentum which was covering the a nterior surface of the gallbladder and significant adhesiolysis was performed using electrocautery to remove the omentum from the anterior surface of the gallbladder which was completely encased. I the n continued down following an inflammatory rind over the anterior surface of the gallbladder to allow for grasping of the gallbladder placed it towards the patient's right shoulder and dissection contin ued down for significant amount of time dissecting free all the adhesions from the transverse colon a nd right upper quadrant hepatic flexure as well as stomach from the anterior surface of the gallbladd er and this extended and thick fibrous adhesions all the way down to the Margaret's pouch of the gall bladder. The patient did have a significant history of multiple episodes of pancreatitis in the past . This seemed evident with the amount of inflammation and scarring which was profound in this area. I dissected down and performed meticulous dissection using a combination of blunt and sharp dissecti on with minimal electrocautery until two structures were identified of both cystic duct and cystic ar bev, had difficulty encircling the cystic artery. At this point, as it was significantly scarred in , but could be visualized due to the significant scar tissue, as such, I did ultimately encircled the structure using an L hook and placed double titanium clips on the proximal side, singly on the cysti c duct and cystic artery. After the critical view of safety was obtained, I then ligated this struct ure using the LigaSure to ensure additional hemostasis was achieved as the patient does have a histor y of thrombocytopenia. At this point, I turned my attention down to the cystic duct which was found to be short and truncated with a very short takeoff of the this common duct. However, the confluence was difficult to visualize due to the significant scar tissue and as such, I did not pursue this. I ndocyanine green cholangiography was performed at this point, which helped to visualize the cystic du ct at this point, entering the gallbladder, under the inflammatory rind, which was evident. After th is was well visualized, I placed the double titanium clips, singly on the distal side and doubly on t he proximal side of the cystic duct and ligated this structure without evidence of complication. I t hen removed the gallbladder from the hepatic fossa using electrocautery without any additional hemost atic measures required. I then removed the gallbladder, placed it in EndoCatch bag, removed the umbi lical trocar, sent it off for pathologic examination. I then inspected the hepatic fossa. There was no significant bleeding at this point. However, given the patient's history of thrombocytopenia, I opted to place Suzi clotting matrix powder into the subhepatic space and the hepatic fossa after ve rifying once again on ICG angiography that no additional leakage of bile was appreciated. Clips were found to be in good anatomic position for both structures. No hemostatic measures were required at this point and the Suzi powder was applied. At this point, I turned my attention to the umbilical trocar site and using a Neri-Cyndy suture passer, I had noted that the Neri-Cyndy suture pa sser did in fact stab into 1 of the smaller varices which had some bleeding in the area which was con trolled using a Neri-Cyndy suture passer with an 0 Vicryl interrupted fashion. Multiple passes were performed to place both proximal and distal 0 Vicryl sutures with good hemostasis. I then inspe cted the area under desufflation and found the hemostasis to be achieved, at this point, and the troc ar site was closed well at this point. I then inspected the area, suctioned out any remaining blood and irrigated the area slightly in the area and removed any effluent at this point. The abdomen was completely desufflated under direct visualization without evidence of complication and remainder of t rocars were removed. All skin incisions were then copiously irrigated and closed with interrupted st aples. The patient tolerated procedure without evidence of complication and transferred to PACU in g ood condition. All counts were correct at the end of the case. BRITANY/MOSES Voice ID: [id number] Report ID: [id number]
[2023-05-01] MEDS: PIPER TAZO 3.375 GM in NA CHLORIDE 0.9% 100 ML IV SCH ×3 (00:05→16:19)
[2023-05-01] MEDS: HYDROMORPHONE HCL 0.5 MG/0.5 ML INJ IV PRN ×6 (00:05→20:31)
--- NOTE | 2023-05-01 00:07 | CON ---
Date of Consultation: 04/30/2023 Reason For Consultation: Acute pancreatitis and cholelithiasis. History Of Present Illness: Patient is a 53-year-old white male with history of asthma, COPD, tobacc o and alcohol abuse. The patient presented to the hospital with acute right upper quadrant pain, he states 10/10, now down to 7/10, with nausea, vomiting. He denies any fevers, chills, bleeding, bates e in bowel habits, or other symptoms. The patient states he drinks approximately 6-12 pack of beer p er day. Smokes about a pack of cigarettes per day. He states that he has a long history of a cyst n ear his pancreas. At [facility], endoscopic ultrasound or other procedure to possibly biopsy, they decided not to do due to his thrombocytopenia. 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 Medications: At home it does not appear he has any. Allergies: TORADOL. Social History: He is . No children. He has step kids, though. Tobacco 1 pack per day. Al cohol 6-12 pack of beer per night. Family History: Father of unknown reasons, he states he did not know. Mother is alive with mark portillo, recently left the room after seeing and visiting. Review of Systems: The patient has right upper quadrant pain, nausea, vomiting. Denies fever, chills, night sweats, arturo musa, hematemesis, coffee-ground emesis, hemoptysis, epistaxis, hematuria, dysuria, polyuria, polydips ia, chest pain, shortness of breath, seizure, syncope, muscle aches, joint aches, backaches. No depression, anxiety. Physical Examination: Vital Signs: He is 6 feet 1 inch, 155 pounds. BMI of 20.5 kg/sq m. Temperature degrees Fahrenheit, pulse 81, respirations 19, blood pressure 116/69, O2 saturation 98% to 100%. General: Well nourished, well developed, sitting in bed, no acute distress. HEENT: Normocephalic, atraumatic. Anicteric. Pupils equal, round, and reactive to light. Orophary nx was clear with poor dentition and only a few teeth left in his mouth. Neck: Supple. No masses. Respirations: Clear to auscultation bilaterally. Cardiac: Regular rate and rhythm. No gallops or rubs. Abdomen: Positive bowel sounds. Soft, nondistended. Pain in the right upper quadrant area with gua rding. No peritoneal sign. No rebound. Extremities: No clubbing, cyanosis, or edema. 2+ pulses. Neuro: Alert and oriented x3. Grossly nonfocal. 5/5 motor sensation. Sensation intact to light to uch. Laboratory Data: Patient has white count 3.6, hemoglobin of 10.7, hematocrit 31.7, MCV of 96, platel et count of 83, polys of 45%, lymphocytes 31%, monocytes 16%, eosinophils 6%. PT of , INR of 1.6. Sodium 138, potassium 3.6, chloride 108, bicarb 26, BUN 7, creatinine of 0.9, glucose 97, ca lcium 8.7, total bilirubin 1.3, AST of 83, ALT of 71, alkaline phosphatase 74, total protein 7.0, alb umin 2.7, of 78, down from 415 on admission. UA was negative. Tox screen was negative. Serum alco hol level less than 10. X-ray was negative. Subsequent to that, he had a CT of the chest dissection and that revealed 3 cm r ounded cystic appearing mass abutting the pancreatic head of unclear etiology. This was going to be had FNA biopsy in the past in [facility], however, due to his low platelets, this was never done in [facility] re ports. Ultrasound of abdomen reveals gallstones in gallbladder, normal common bile duct. MRI of abd omen reveals [id number] pericholecystic fluid consistent with cholecystitis. Impression: 1.Acute pancreatitis with the right upper quadrant pain and elevated lipase at 415. Pain was 10/10 on admission, now down to 7/10, with possible nausea, vomiting, but no fevers, chills, bleeding, qureshi ge in bowel habits, or other. The patient had MRCP which did not reveal any stones in common bile du ct today. 2.Cholelithiasis and cholecystitis. Ultrasound of abdomen reveals gallstones, gallbladder with norm al common bile duct. MRI of abdomen revealed [id number] pericholecystic fluid consistent with cholecystitis. 3.Abnormal CT showed a 3 cm cyst abutting the head of the pancreas. The patient states that he has had this cyst for 10+ years, [facility] did not do a biopsy of the cyst due to his low platelet count on po ssible endoscopic ultrasound test. 4.Alcohol abuse. 5.History of cyst of the head of pancreas, asthma, COPD, alcohol and tobacco abuse. Recommendation: 1.MRCP which was done today. MRCP revealed no choledocholithiasis, but did have findings suggestive of acute cholecystitis, mild to moderate pericholecystic fluid, gallbladder sludge, and s tones in the gallbladder and there was some mild peripancreatic ascites. Also, pancreatic cyst at th e head of the pancreas which was outside the pancreas, proteinaceous content. No suspicio n of neoplastic process. As per radiology report, we recommend followup in 6 and 24 months probably. 2.Surgery consult. The patient had a laparoscopic cholecystectomy today. 3.Keep patient n.p.o. 4.IV fluids, IV antibiotics. 5.P.r.n. pain medicines, antiemetics. 6.Liver workup with low platelet count noted, suggestive of possible liver disease, especially with heavy alcohol use in the past. 7.Alcoholics Anonymous and rehab program on discharge for his alcohol abuse. POLA/MOSES Voice ID: [id number] Report ID: [id number]
[2023-05-01 04:20] LABS: Absolute Lymphocytes (CBC) 0.8 K/uL (0.7-4.9); Hematocrit 37.7 % (39.6-49.0); Lymphocytes % 10.9 % (15.3-44.8); MCV 95.9 fL (80-100); MPV 8.4 fL (7.6-11.3); Platelets 91 thou/uL (152-406); RBC Red Blood Cell Count 3.93 M/uL (4.33-5.43)
[2023-05-01 04:46] LABS: Albumin 2.9 g/dL (3.4-5.0); Bilirubin Total 1.4 mg/dL (0.2-1.0); Protein, Total 7.3 g/dL (6.4-8.2)
[2023-05-01] MEDS: Ringers Lactate 1,000 ML IV SCH ×2 (05:24→16:19)
--- NOTE | 2023-05-01 07:43 | P.DS ---
Admission Date: 04/28/23 Discharge Date: 05/01/23 Disposition: ROUTINE DISCHARGE Discharge Condition: GOOD Reason for Admission: Abdominal pain, pancreas mass, gallstones. Brief History of Present Illness: 53-year-old male patient with medical history significant for episode of abdominal pain in the past who came to the ED with complaint of abdominal pain. Pain is located in the upper region of the abdomen with radiation to the back. Pain is rated 8-10 out of 10 in intensity and it was case scenario. No associated nausea, vomiting, fever, chills. He had a CT of the abdomen/pelvis done that showed a 3 cm pancreas mass and abdominal ultrasound revealed tiny stones in the gallbladder. No evidence of cholecystitis. He had elevated transaminases so he was asked to be evaluated by gastroenterology and was admitted for inpatient care. - Physical Exam General: Alert, Oriented x3 HEENT: Atraumatic Neck: Supple Respiratory: Normal air movement Cardiovascular: Regular rate/rhythm, Normal S1 S2 Gastrointestinal: RUQ tenderness, no rebound tenderness Musculoskeletal: No swelling Neurological: Normal speech, Normal strength at 5/5 x4 extr Hospital Course: Pancreatitis: Patient has elevated lipase, imaging finding of pancreas mass and gallstones. We think he has gallstone pancreatitis. Gastroenterology consult placed Continue pain control with Dilaudid. Continue IV lactated Ringer's for hydration purposes Trend lipase, trending down 450-140 Transaminitis Cirrhosis Thrombocytopenia Trend platelets 80, 83, 91 Will have gastroenterology evaluate patient for episode of gallstones causing issues in the liver. acute cholecytitis Cholelithiasis: Abdominal ultrasound confirmed gallstones without cholecystitis. Pain control with as needed Dilaudid to be continued. IV hydration to be continued. Surgery consulted n.p.o. after midnight 03/31/2023 Zosyn added 04/30 Dr An Laparoscopic cholecystectomy with ICG Cholangiography MRCP IMPRESSION: Findings suggestive of acute cholecystitis. Gallbladder sludge and small layering stones near the gallbladder neck. Mild free perihepatic ascites. Pancreatic head 3.0 cm cyst, appears to have proteinaceous content, with no suspicious enhancement. Per the ACR white paper for incidental pancreatic cystic lesions, this is considered low risk for pancreatic malignancy by imaging criteria. A six-month follow-up pancreatic protocol MRI is recommended for evaluation, for a total period of 2 years initially. No intra or extrahepatic biliary ductal dilation. The Physician Discharge Instructions: -DC IV and DC home -Follow-up with PCP in 1 to 2 weeks -Please call Dr. Gonzalez at [phone] if any questions regarding hospital stay -Please call nursing station at [phone] if any nursing or medication questions -Return to the emergency room if symptoms worsen Diet: Low sodium Activity: Fall precautions Vital Signs/Physical Exam: Temp Pulse Resp BP Pulse Ox 98.7 F 71 18 101/60 95 05/01/23 04:00 05/01/23 04:00 05/01/23 04:00 05/01/23 04:00 05/01/23 04:00 Laboratory Data at Discharge: WBC 7.10 thou/uL (4.3-10.9) 05/01/23 03:58 Hgb Cancelled 05/01/23 04:10 Hct 37.7 % (39.6-49.0) L 05/01/23 03:58 Plt Count 91 thou/uL (152-406) L 05/01/23 03:58 PT 16.8 SECONDS (9.5-12.5) H 04/28/23 18:28 INR 1.55 04/28/23 18:28 Sodium 137 mEq/L (136-145) 05/01/23 03:58 Potassium 4.0 mEq/L (3.5-5.1) 05/01/23 03:58 BUN 9 mg/dL (7-18) 05/01/23 03:58 Creatinine 1.10 mg/dL (0.70-1.30) 05/01/23 03:58 Glucose 120 mg/dL (74-106) H 05/01/23 03:58 Magnesium 1.7 mg/dL (1.6-2.4) 04/28/23 18:28 Total Bilirubin 1.4 mg/dL (0.2-1.0) H 05/01/23 03:58 AST 83 U/L (15-37) H 05/01/23 03:58 ALT 82 U/L (16-61) H 05/01/23 03:58 Alkaline Phosphatase 75 U/L (45-117) 05/01/23 03:58 Lipase 21 U/L (13-75) 05/01/23 03:58 Home Medications: NK [No Home Meds] 04/29/23 Physician Discharge Instructions: Pancreatitis: Patient has elevated lipase, imaging finding of pancreas mass and gallstones. We think he has gallstone pancreatitis. Gastroenterology consult placed Continue pain control with Dilaudid. Continue IV lactated Ringer's for hydration purposes Trend lipase, trending down 450-140 Transaminitis Cirrhosis Thrombocytopenia Trend platelets 80, 83, 91 Will have gastroenterology evaluate patient for episode of gallstones causing issues in the liver. acute cholecytitis Cholelithiasis: Abdominal ultrasound confirmed gallstones without cholecystitis. Pain control with as needed Dilaudid to be continued. IV hydration to be continued. Surgery consulted n.p.o. after midnight 03/31/2023 Zosyn added 04/30 Dr An Laparoscopic cholecystectomy with ICG Cholangiography MRCP IMPRESSION: Findings suggestive of acute cholecystitis. Gallbladder sludge and small layering stones near the gallbladder neck. Mild free perihepatic ascites. Pancreatic head 3.0 cm cyst, appears to have proteinaceous content, with no suspicious enhancement. Per the ACR white paper for incidental pancreatic cystic lesions, this is considered low risk for pancreatic malignancy by imaging criteria. A six-month follow-up pancreatic protocol MRI is recommended for evaluation, for a total period of 2 years initially. No intra or extrahepatic biliary ductal dilation. The Physician Discharge Instructions: -DC IV and DC home -Follow-up with PCP in 1 to 2 weeks -Please call Dr. Gonzalez at [phone] if any questions regarding hospital stay -Please call nursing station at [phone] if any nursing or medication questions -Return to the emergency room if symptoms worsen Diet: Low sodium Activity: Fall precautions Diet: [place] Activity: No lifting more than 10 lbs Followup: Jerrod Tovar MD [ACTIVE - CAN ADMIT] -
--- NOTE | 2023-05-01 07:45 | P.PN ---
Subjective Date of Service: 05/01/23 Chief Complaint: Abdominal pain, pancreas mass, gallstones. pain, nausea controlled with prn analgesics, Physical Examination - Physical Exam General: Alert, Oriented x3 HEENT: Atraumatic Neck: Supple Respiratory: Normal air movement Cardiovascular: Regular rate/rhythm, Normal S1 S2 Gastrointestinal: RUQ tenderness, no rebound tenderness Musculoskeletal: No swelling Neurological: Normal speech, Normal strength at 5/5 x4 extr Physical Examination - Vital Signs Temperature: 98.7 F Blood Pressure: 101/60 Pulse: 71 Respirations: 18 Pulse Ox (%): 95 Assessment And Plan - Plan - Plan Pancreatitis: Patient has elevated lipase, imaging finding of pancreas mass and gallstones. We think he has gallstone pancreatitis. Gastroenterology consult placed Continue pain control with Dilaudid. Continue IV lactated Ringer's for hydration purposes Trend lipase, trending down 450-140 Transaminitis Cirrhosis Thrombocytopenia Trend platelets 80, 83, 91 Will have gastroenterology evaluate patient for episode of gallstones causing issues in the liver. acute cholecytitis Cholelithiasis: Abdominal ultrasound confirmed gallstones without cholecystitis. Pain control with as needed Dilaudid to be continued. IV hydration to be continued. Surgery consulted n.p.o. after midnight 03/31/2023 Zosyn added 04/30 Dr An Laparoscopic cholecystectomy with ICG Cholangiography MRCP IMPRESSION: Findings suggestive of acute cholecystitis. Gallbladder sludge and small layering stones near the gallbladder neck. Mild free perihepatic ascites. Pancreatic head 3.0 cm cyst, appears to have proteinaceous content, with no suspicious enhancement. Per the ACR white paper for incidental pancreatic cystic lesions, this is considered low risk for pancreatic malignancy by imaging criteria. A six-month follow-up pancreatic protocol MRI is recommended for evaluation, for a total period of 2 years initially. No intra or extrahepatic biliary ductal dilation. The Prophylaxis: Lovenox for DVT prophylaxis CODE STATUS: Full code NPO after MN Disposition: We will treat his abdominal pain and manage his pancreatitis and will be discharged once he is cleared by gastroenterology, surgery service. Discharge Plan: Home - Code Status/Comfort Care Code Status: Full Code Physician Review: Patient Assessed, Agree with Above Assessment and Plan Critical Care: No Time Spent Managing PTS Care (In Minutes): 35
[2023-05-01] MEDS: NICOTINE 21 MG/PAT TD SCH (08:04)
[2023-05-01] MEDS ORDERED: LORazepam 2 MG/ML VIAL IV PRN (09:39)
[2023-05-01] MEDS ORDERED: DOCUSATE NA 100 MG CAP PO PRN (09:40)
[2023-05-01] MEDS ORDERED: chlordiazePOXIDE HCl 5 MG CAP PO PRN (09:59)
[2023-05-01] MEDS ORDERED: FLUMAZENIL 0.1 MG/ML (5 mL VIAL) IV PRN (09:59)
--- NOTE | 2023-05-01 13:51 | P.PN ---
Subjective Date of Service: 05/01/23 Chief Complaint: Abdominal pain, pancreas mass, gallstones. pain improved after surgery, request po pain meds, tolerating diet, reports history of ETOH use - Physical Exam General: Alert, Oriented x3 HEENT: Atraumatic Neck: Supple Respiratory: Normal air movement Cardiovascular: Regular rate/rhythm, Normal S1 S2 Gastrointestinal: RUQ tenderness, no rebound tenderness Musculoskeletal: No swelling Neurological: Normal speech, Normal strength at 5/5 x4 extr Hospital Course: Review of Systems PER HPI Physical Examination - Vital Signs Temperature: 97.8 F Blood Pressure: 132/75 Pulse: 77 Respirations: 16 Pulse Ox (%): 98 Assessment And Plan - Plan - Plan Pancreatitis: Patient has elevated lipase, imaging finding of pancreas mass and gallstones. We think he has gallstone pancreatitis. Gastroenterology consult placed Continue pain control with Dilaudid. Continue IV lactated Ringer's for hydration purposes Trend lipase, trending down 450-140 Transaminitis: Thrombocytopenia Trend platelets, monitor for bleeding 80, 83, 91 Cirrhosis Will have gastroenterology evaluate patient for episode of gallstones causing issues in the liver. EtOH use CIWA protocol added acute cholecytitis Cholelithiasis: Abdominal ultrasound confirmed gallstones without cholecystitis. Pain control with as needed Dilaudid to be continued. IV hydration to be continued. Surgery consulted n.p.o. after midnight 03/31/2023, Zosyn added 04/30 Status post lap manny with ICG Cholangiography Dr. Tovar MRCP IMPRESSION: Findings suggestive of acute cholecystitis. Gallbladder sludge and small layering stones near the gallbladder neck. Mild free perihepatic ascites. Pancreatic head 3.0 cm cyst, appears to have proteinaceous content, with no suspicious enhancement. Per the ACR white paper for incidental pancreatic cystic lesions, this is consid ered low risk for pancreatic malignancy by imaging criteria. A six-month follow-up pancreatic protocol MRI is recommended for evaluation, for a total period of 2 years initially. No intra or extrahepatic biliary ductal dilation. The Prophylaxis: Lovenox for DVT prophylaxis CODE STATUS: Full code Cardiac diet Disposition: We will treat his abdominal pain and manage his pancreatitis and will be discharged once he is cleared by gastroenterology, surgery service. Discharge Plan: Home Plan to discharge in: 48 Hours Physician Review: Patient Assessed, Agree with Above Assessment and Plan Critical Care: No Time Spent Managing PTS Care (In Minutes): 35
[2023-05-02] MEDS: Ringers Lactate 1,000 ML IV SCH (00:44)
[2023-05-02] MEDS: PIPER TAZO 3.375 GM in NA CHLORIDE 0.9% 100 ML IV SCH (00:44)
[2023-05-02 00:46] VITALS: TEMP 97.6
[2023-05-02] MEDS: HYDROCODONE/APAP 5/325 MG TAB PO PRN ×2 (00:50→08:01)
[2023-05-02 02:50] LABS: Absolute Lymphocytes (CBC) 1.1 K/uL (0.7-4.9); Hematocrit 34.2 % (39.6-49.0); Lymphocytes % 15.6 % (15.3-44.8); MCV 95.7 fL (80-100); MPV 8.6 fL (7.6-11.3); Platelets 94 thou/uL (152-406); RBC Red Blood Cell Count 3.58 M/uL (4.33-5.43)
[2023-05-02 03:00] LABS: Albumin 2.6 g/dL (3.4-5.0); Bilirubin Total 1.2 mg/dL (0.2-1.0); Potassium 3.2 mEq/L (3.5-5.1); Protein, Total 6.6 g/dL (6.4-8.2)
[2023-05-02 05:23] VITALS: BP 133/70
[2023-05-02 05:45] VITALS: O2SAT 95
[2023-05-02] MEDS: NICOTINE 21 MG/PAT TD SCH (08:01)
[2023-05-02] MEDS: ONDANSETRON 4 MG/2 ML VIAL IV PRN (08:02)
--- NOTE | 2023-05-29 09:22 | CON ---
Date of Consultation: 04/30/2023 Reason For Consultation: right upper quadrant pain, nausea, vomiting with cholelithiasis, and pancreas mass. 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 The patient came to the hospital due to his abdominal pain, right upper quadrant with nausea, vomiting, found to have elevated lipase of 415. The patient has a long-term history of cyst at the head of the pancreas of unknown etiology, but he was supposed to have a biopsy or evaluation at a tertiary center. However, there was some complication prior to procedure and the patient never got that performed. CT of the abdomen and pelvis in the hospital shows a 3 cm mass at the head of the pancreas. Ultrasound reveals tiny stones in the gallbladder. No evidence of cholecystitis. Elevated transaminases, AST and ALT. The patient does drink alcohol as a long alcohol history. A 12-pack of beer a day on occasions. Past Medical History: Significant for cyst of the head of the pancreas many years with almost attempted diagnostic possible biopsy at tertiary center. However, this was aborted due to some complications prior to procedure. He also has a history of asthma, COPD, recurrent pancreatitis, alcohol abuse and tobacco abuse. Medications: Include Toradol. Allergies: NKDA. Social History: He is . No children. Tobacco one pack per day. Alcohol, beer 12-pack per day. Family History: Father of unknown reasons. Mother is alive with diabetes. INCOMPLETE DICTATION POLA/MOSES Voice ID: [id number] Report ID: [id number] LEONARDO
== END 2023-05-02 08:20 | disposition home or self-care (01) | DRG 417 ==
LOC: ER 17:37 → ERHOLD 23:25 → 2ND 04-29 07:45
PROVIDERS: ADMIT Internal Medicine Nephrology; ATTEND Hospitalist
PROC: BF52200 Other Imaging of Gallbladder using Fluorescing Agent, Indocyanine Green Dye, Intraoperative (ICD-10-PCS; 2023-04-30)
PROC: 0FT44ZZ Resection of Gallbladder, Percutaneous Endoscopic Approach (ICD-10-PCS; principal; 2023-04-30 11:30)
DX: K80.00 Calculus of gallbladder with acute cholecystitis without obstruction (principal); K85.80 Other acute pancreatitis without necrosis or infection; K86.2 Cyst of pancreas; K70.31 Alcoholic cirrhosis of liver with ascites; K86.89 Other specified diseases of pancreas; D69.6 Thrombocytopenia, unspecified; F17.210 Nicotine dependence, cigarettes, uncomplicated; R74.01 Elevation of levels of liver transaminase levels; Z88.5 Allergy status to narcotic agent; Z56.0 Unemployment, unspecified; Z28.310 Unvaccinated for COVID-19
CPT/HCPCS: 36415; 71045; 71275; 74175; 74181; 74183; 76705; 80048; 80053; 80076; 80307; 81001; 82077; 82140; 83605; 83690; 83735; 84484; 85018; 85025; 85610; 86850; 86900; 86901; 87040; 88304; 93005; 96361; 96365; 96375; 99285; A4216; A9577; C9113; J1100; J1170; J1200; J2001; J2175; J2250; J2405; J2543; J2704; J2710; J2765; J3010; J7030; J7120; Q9967

== ENCOUNTER 2024-06-04 12:39 | Inpatient (IN) | payer OTHER ==
[2024-06-04] MEDS ORDERED: MORPHINE 4 MG/ML SYR ONE (12:57)
[2024-06-04] MEDS ORDERED: ONDANSETRON 4 MG/2 ML VIAL ONE (12:57)
[2024-06-04 13:20] LABS: Absolute Eosinophils 0.2 K/uL (0-0.5); Absolute Lymphocytes (CBC) 2.1 K/uL (0.7-4.9); Absolute Monocytes 0.4 K/uL (0.1-1.3); Absolute Neutrophil 2.7 K/uL (1.8-8.0); Basophils % 0.8 % (0-1.3); Eosinophils % 4.3 % (0-4.4); Hematocrit 43.5 % (39.6-49.0); Lymphocytes % 38.9 % (15.3-44.8); MCH 33.7 pg (27.0-35.0); MCHC 34.5 g/dL (32.0-36.0); MCV 97.7 fL (80-100); Nucleated Red Blood Cells % 0.1 % (0-0); Platelets 147 thou/uL (152-406); RBC Red Blood Cell Count 4.46 M/uL (4.33-5.43); Red Cell Distribution Width 15.9 % (12.1-15.2)
[2024-06-04 13:34] LABS: Albumin 3.6 g/dL (3.4-5.0); Albumin/Globulin Ratio 0.8 (1.1-1.8); Anion Gap 16.3 mEq/L (5.0-15.0); Globulin 4.3 g/dL (2.3-3.5); Potassium 4.3 mEq/L (3.5-5.1); Protein, Total 7.9 g/dL (6.4-8.2)
--- NOTE | 2024-06-04 13:34 | RAD REPORT ---
EXAMINATION: CT ABDOMEN AND PELVIS WITH CONTRAST CLINICAL INDICATION: Male, 54 years old.left inguinal pain / hernia TECHNIQUE: CT abdomen and pelvis was performed, after the administration of IV contrast, as per [facility] protocol. Axial, sagittal and coronal reconstructions were obtained. One or more of the following dose reduction techniques were used: Automated exposure control, adjustment of the mA and/o r kV according to patient size, and/or iterative reconstruction. Unless otherwise specified, incidental findings do not require dedicated imaging follow-up. [id number]. COMPARISON: No prior exam. FINDINGS: LOWER CHEST: No acute process identified.No significant pericardial effusion. Mild circumferential th ickening of the distal esophagus which could reflect esophagitis. UPPER GI: No significant abnormality. LIVER: Cirrhotic liver morphology. No discrete mass. Recanalized umbilical vein. GALLBLADDER/BILE DUCTS: Cholecystectomy. Moderate extra-hepatic biliary ductal dilatation is likely r elated to the post-cholecystectomy state. Consider correlating with LFT's.?The common bile duct measures at least 11 mm. PANCREAS: No mass, ductal dilation, or obi-pancreatic fluid. SPLEEN: Unremarkable. ADRENALS: No adrenal masses. KIDNEYS AND URETERS: No hydronephrosis.No suspicious renal mass. ABDOMINAL AORTA AND OTHER VESSELS: Moderate atherosclerotic changes without aortic aneurysm. PERITONEUM: Mild to moderate ascites. LYMPH NODES: No pathologic lymphadenopathy. ABDOMINAL WALL: Bilateral inguinal hernias, left greater than right. On the left, there is complex as citic fluid extending down into the scrotum. SMALL BOWEL/COLON: Small bowel has normal course and caliber. No colonic wall thickening or pericolon ic inflammatory changes.Normal appendix. URINARY BLADDER: Underdistended but grossly unremarkable. REPRODUCTIVE ORGANS: No pathologic process. MUSCULOSKELETAL: No acute or suspicious osseous abnormality. ADDITIONAL FINDINGS: None. IMPRESSION: 1. Cirrhosis with evidence of portal hypertension including mild to moderate ascites. 2. Left inguinal hernia with ascitic fluid extending into the scrotum. 3. Cholecystomy. Extrahepatic biliary duct dilatation may be related to the post cholecystectomy stat e. Correlate with LFTs. If abnormal, could consider MRCP for further evaluation.
--- NOTE | 2024-06-04 14:31 | EDPHYS ---
Physician Documentation [facility] Name: Larry Whitaker Age: 54 yrs Sex: Male : 1970 Arrival Date: 06/04/2024 Time: 12:39 Bed 18 Private MD: ED Physician Israel Marquez HPI: 06/04 13:14 This 54 yrs old Male presents to ER via Wheelchair with complaints of Hernia pain. sp3 13:14 54-year-old male with history of asthma and recent left inguinal hernias for the last 2 sp3 months presents to the ED for chief complaint left inguinal pain. No change in bowel patterns, vomiting, upper abdominal pain, back pain, chest pain, shortness of breath, fever or any other signs or symptoms on ROS at this time. Patient states he went to a surgeon not at this hospital but at [facility] and was told that he "needed to stop smoking before they could do anything".. Historical: - Allergies: 12:46 Cyclobenzaprine; ll1 12:46 Toradol; ll1 - PMHx: 12:46 Asthma; ll1 - PSHx: 12:46 Cholecystectomy; Foot - Left; ll1 - Immunization history:: Adult Immunizations up to date. - Infectious Disease History:: Denies. - Social history:: Smoking status: Patient reports the use of cigarette tobacco products, smokes .25 packs per day. ROS: 13:14 Constitutional: Negative for fever, chills, and weight loss, Eyes: Negative for injury, sp3 pain, redness, and discharge, ENT: Negative for injury, pain, and discharge, Neck: Negative for injury, pain, and swelling, Cardiovascular: Negative for chest pain, palpitations, and edema, Respiratory: Negative for shortness of breath, cough, wheezing, and pleuritic chest pain, Back: Negative for injury and pain, MS/Extremity: Negative for injury and deformity, Skin: Negative for injury, rash, and discoloration, Neuro: Negative for headache, weakness, numbness, tingling, and seizure, Psych: Negative for depression, anxiety, suicide ideation, homicidal ideation, and hallucinations, Allergy/Immunology: Negative for hives, rash, and allergies, Endocrine: Negative for neck swelling, polydipsia, polyuria, polyphagia, and marked weight changes, Hematologic/Lymphatic: Negative for swollen nodes, abnormal bleeding, and unusual bruising, 13:14 All other systems are negative, Exam: 13:14 Constitutional: This is a well developed, well nourished patient who is awake, alert, sp3 and in no acute distress. Head/Face: Normocephalic, atraumatic. Eyes: Pupils equal round and reactive to light, extra-ocular motions intact. Lids and lashes normal. Conjunctiva and sclera are non-icteric and not injected. Cornea within normal limits. Periorbital areas with no swelling, redness, or edema. Neck: Trachea midline, no thyromegaly or masses palpated, and no cervical lymphadenopathy. Supple, full range of motion without nuchal rigidity, or vertebral point tenderness. No Meningismus. Chest/axilla: Normal chest wall appearance and motion. Nontender with no deformity. No lesions are appreciated. Cardiovascular: Regular rate and rhythm with a normal S1 and S2. No gallops, murmurs, or rubs. Normal PMI, no JVD. No pulse deficits. Respiratory: Lungs have equal breath sounds bilaterally, clear to auscultation and percussion. No rales, rhonchi or wheezes noted. No increased work of breathing, no retractions or nasal flaring. Back: No spinal tenderness. No costovertebral tenderness. Full range of motion. Skin: Warm, dry with normal turgor. Normal color with no rashes, no lesions, and no evidence of cellulitis. MS/ Extremity: Pulses equal, no cyanosis. Neurovascular intact. Full, normal range of motion. Neuro: Awake and alert, GCS 15, oriented to person, place, time, and situation. Cranial nerves II-XII grossly intact. Motor strength 5/5 in all extremities. Sensory grossly intact. Cerebellar exam normal. Normal gait. Psych: Awake, alert, with orientation to person, place and time. Behavior, mood, and affect are within normal limits. 13:14 Abdomen/GI: Left lower quadrant abdominal pain noted without peritoneal signs, rebound or guarding and left inguinal hernia noted. No entrapment or strangulation on clinical exam. Testicular and penis exam are normal., Vital Signs: 12:45 BP 127 / 96; Pulse 87; Resp 16; Temp 97.2; Pulse Ox 100% ; Weight 67.13 kg; Height 6 ll1 ft. 1 in. ; Pain 10/; 12:45 Body Mass Index 19.53 (67.13 kg, 185.42 cm) ll1 12:45 Pain Scale: Adult ll1 MDM: 12:52 Medical Screening Exam initiated sp3 13:15 Data reviewed: vital signs, nurses notes, lab test result(s), radiologic studies. ED sp3 course: 54-year-old male with left inguinal pain. Differential diagnosis includes hernia of varying stages, abdominal pain, diverticulitis, constipation, other bowel pathology, UTI, ureteral pathology including stone, among others. I med/tele suspicious of AAA or other vascular pathology. Workup will include CT scan of the abdomen pelvis with IV contrast, general labs, UA and general supportive care. Morphine and Zofran will be given the patient is n.p.o. in case surgery is needed. Disposition pending workup and patient course.. 13:57 ED course: Hernia presented to the inguinal canal without strangulation. Labs within sp3 normal limits however patient is still pretty tender. I discussed the case with Dr. Tovar who is operated on him in the past for gallbladder. He is on-call and will be in the ED to evaluate.. 14:29 ED course: Patient will be admitted under hospitalist service with Dr. Tovar sp3 operating on tomorrow. As needed pain meds ordered.. 06/04 12:58 Order name: CBC with Diff; Complete Time: 13:35 sp3 06/04 12:58 Order name: CMP; Complete Time: 13:35 sp3 06/04 12:58 Order name: Lipase; Complete Time: 13:35 sp3 06/04 12:58 Order name: Urinalysis w/ reflexes sp3 06/04 12:58 Order name: PT-INR sp3 06/04 14:46 Order name: CBC with Automated Diff EDMS 06/04 14:46 Order name: CBC with Automated Diff EDMS 06/04 12:58 Order name: CT Abd/Pelvis - IV Contrast Only; Complete Time: 13:35 sp3 06/04 14:44 Order name: CONS Physician Consult EDMS 06/04 12:58 Order name: IV Saline Lock; Complete Time: 13:12 sp3 06/04 12:58 Order name: Labs collected and sent; Complete Time: 13:12 sp3 06/04 12:58 Order name: NPO; Complete Time: 13:00 sp3 Administered Medications: 13:12 Drug: Ondansetron IVP 4 mg IVP once; over 2 minutes Route: IVP; Site: right forearm; kc6 14:07 Follow up: Response: No adverse reaction kc6 13:12 Drug: morphine IVP or IV 4 mg IVP once over 4 mins Route: IVP; Infused Over: 4 mins; kc6 Site: right forearm; 14:07 Follow up: Response: No adverse reaction; Pain is decreased; RASS: Alert and Calm (0) kc6 15:04 Drug: HYDROmorphone IVP 1 mg IVP once Route: IVP; Site: right forearm; kc6 Disposition Summary: 06/04/24 14:31 Hospitalization Ordered Notes: Hospitalization Status: Observation sp3 Location: Telemetry/MedSurg (observation) sp3 Condition: Stable sp3 Problem: an acute exacerbation sp3 Symptoms: have worsened sp3 Bed/Room Type: Standard sp3 Provider: Jason Eli(06/04/24 14:41) sp3 Room Assignment: [facility](06/04/24 14:50) ja1 Diagnosis - Left inguinal hernia, abdominal pain sp3 Forms: - Medication Reconciliation Form sp3 - SBAR form sp3 - Leadership Thank You Letter sp3 Signatures: Dispatcher [employer] Modesto Gonzalez RN RN ja1 Toni Jimenez RN RN ll1 Israel Marquez MD MD sp3 Keily Cherry RN RN kc6 Corrections: (The following items were deleted from the chart) 14:41 14:31 Earl Cooper sp3 sp3 14:50 14:31 sp3 jaAyo
--- NOTE | 2024-06-04 14:31 | ER ---
Nurse's Notes [facility] Name: Larry Whitaker Age: 54 yrs Sex: Male : 1970 Arrival Date: 06/04/2024 Time: 12:39 Bed 18 Private MD: Diagnosis: Left inguinal hernia, abdominal pain Presentation: 06/04 12:45 Chief complaint: Patient states: Hernia pain for 2 months. states a surgeon told ll1 him "he must stop smoking before they will do surgery". Coronavirus screen: Client denies travel out of the [place] in the last 14 days. At this time, the client does not indicate any symptoms associated with coronavirus-19. Ebola Screen: Patient denies travel to an Ebola-affected area in the 21 days before illness onset. Initial Sepsis Screen: Does the patient meet any 2 criteria? No. Patient's initial sepsis screen is negative. Does the patient have a suspected source of infection? No. Patient's initial sepsis screen is negative. Risk Assessment: Do you want to hurt yourself or someone else? Patient reports no desire to harm self or others. Onset of symptoms was March 20, 2024. 12:45 Method Of Arrival: Wheelchair ll1 12:45 Acuity: JOSE 3 ll1 Triage Assessment: 12:51 General: Appears distressed, uncomfortable, ill, Behavior is cooperative, appropriate ll1 for age, agitated. Pain: Complains of pain in abdomen Pain currently is 10 out of 10 on a pain scale. GI: Reports lower abdominal pain. Historical: - Allergies: 12:46 Cyclobenzaprine; ll1 12:46 Toradol; ll1 - PMHx: 12:46 Asthma; ll1 - PSHx: 12:46 Cholecystectomy; Foot - Left; ll1 - Immunization history:: Adult Immunizations up to date. - Infectious Disease History:: Denies. - Social history:: Smoking status: Patient reports the use of cigarette tobacco products, smokes .25 packs per day. Screenin:12 [facility] ED Fall Risk Assessment (Adult) History of falling in the last 3 months, kc6 including since admission No falls in past 3 months (0 pts) Confusion or Disorientation No (0 pts) Intoxicated or Sedated No (0 pts) Impaired Gait No (0 pts) Mobility Assist Device Used No (0 pt) Altered Elimination No (0 pt) Score/Fall Risk Level 0 - 2 = Low Risk Oriented to surroundings, Maintained a safe environment, Educated pt \\T\\ family on fall prevention, incl call for assistance when getting out of bed. Abuse screen: Denies threats or abuse. Denies injuries from another. Nutritional screening: No deficits noted. Tuberculosis screening: No symptoms or risk factors identified. Assessment: 13:13 General: Appears in no apparent distress. uncomfortable, slender, well groomed, well kc6 developed, Behavior is cooperative, appropriate for age, restless, Smells of alcohol. Pain: Complains of pain in abdomen Pain does not radiate. Pain began suddenly, Is continuous, Noted to be grimacing, guarding, moaning, resistant to movement. Neuro: Level of Consciousness is awake, alert, obeys commands, Oriented to person, place, time, situation, Appropriate for age. Cardiovascular: Capillary refill < 3 seconds. Respiratory: Airway is patent Trachea midline Respiratory effort is even, unlabored, Respiratory pattern is regular, symmetrical. GI: Bowel sounds present X 4 quads. Abdomen is tender to palpation X 4 quads. Reports lower abdominal pain, upper abdominal pain, Patient currently denies diarrhea, nausea, vomiting. : No signs and/or symptoms were reported regarding the genitourinary system. EENT: No signs and/or symptoms were reported regarding the EENT system. Derm: No signs and/or symptoms reported regarding the dermatologic system. Skin is intact, is healthy with good turgor, Skin is pink, warm \\T\\ dry. Musculoskeletal: No signs and/or symptoms reported regarding the musculoskeletal system. Circulation, motion, and sensation intact. Range of motion: intact in all extremities. 14:06 Reassessment: Dr. Tovar at bedside speaking with pt and family. kc6 14:07 Reassessment: Patient appears in no apparent distress at this time. No changes from kc6 previously documented assessment. Patient and/or family updated on plan of care and expected duration. Pain level reassessed. Patient is alert, oriented x 3, equal unlabored respirations, skin warm/dry/pink. 15:11 Reassessment: Patient appears in no apparent distress at this time. No changes from kc6 previously documented assessment. Patient and/or family updated on plan of care and expected duration. Pain level reassessed. Patient is alert, oriented x 3, equal unlabored respirations, skin warm/dry/pink. Patient states feeling better. Patient states symptoms have improved. Vital Signs: 12:45 BP 127 / 96; Pulse 87; Resp 16; Temp 97.2; Pulse Ox 100% ; Weight 67.13 kg; Height 6 ll1 ft. 1 in. ; Pain 10/10; 12:45 Body Mass Index 19.53 (67.13 kg, 185.42 cm) ll1 12:45 Pain Scale: Adult ll1 ED Course: 12:41 Patient arrived in ED. im 12:44 Israel Marquez MD is Attending Physician. sp3 12:46 Triage completed. ll1 12:46 Arm band placed on Patient placed in an exam room, on a stretcher. ll1 12:49 Keily Cherry, CRYSTAL is Primary Nurse. kc6 13:12 Patient has correct armband on for positive identification. Placed in gown. Bed in low kc6 position. Call light in reach. Side rails up X 1. Adult w/ patient. Pulse ox on. NIBP on. Door closed. Noise minimized. Lights dimmed. Warm blanket given. Pillow given. Diet: Patient is NPO. 13:12 Initial lab(s) drawn, by me, sent to lab. Inserted saline lock: 20 gauge in right kc6 forearm, using aseptic technique. Blood collected. Flushed with 10 mL NS. Patient maintains SpO2 saturation greater than 95% on room air. 13:18 CT Abd/Pelvis - IV Contrast Only In Process Unspecified. EDMS 14:30 Earl Cooper is Hospitalizing Provider. sp3 14:41 Jason Eli MD is Hospitalizing Provider. sp3 15:11 Diet: Patient given a regular meal tray. Tolerated well. kc6 15:12 No provider procedures requiring assistance completed. kc6 15:40 Patient admitted, IV remains in place. kc6 Administered Medications: 13:12 Drug: Ondansetron IVP 4 mg IVP once; over 2 minutes Route: IVP; Site: right forearm; kc6 14:07 Follow up: Response: No adverse reaction kc6 13:12 Drug: morphine IVP or IV 4 mg IVP once over 4 mins Route: IVP; Infused Over: 4 mins; kc6 Site: right forearm; 14:07 Follow up: Response: No adverse reaction; Pain is decreased; RASS: Alert and Calm (0) kc6 15:04 Drug: HYDROmorphone IVP 1 mg IVP once Route: IVP; Site: right forearm; kc6 Medication: 15:12 VIS not applicable for this client. kc6 Outcome: 14:31 Decision to Hospitalize by Provider. sp3 15:40 Admitted to Med/surg accompanied by tech, via wheelchair, room 415, with chart, kc6 15:40 Condition: good 15:40 Instructed on the need for admit, 15:41 Patient left the ED. kc6 Signatures: Dispatcher [employer] EDToni Wilson RN RN ll1 Israel Marquez MD MD sp3 Keily Cherry RN RN kc6 Lenora Hernandez Corrections: (The following items were deleted from the chart) 12:46 12:45 Pulse 87bpm; Resp 16bpm; Pulse Ox 100%; Temp 97.2F; 67.13 kg; Height 6 ft. 1 in.; ll1 BMI: 19.5; Pain 10/10, Adult; ll1 12:53 12:45 Chief complaint: Patient states: Hernia pain for 2 months ll1 ll1
[2024-06-04] MEDS ORDERED: ONDANSETRON 4 MG/2 ML VIAL IV PRN (14:42)
[2024-06-04] MEDS ORDERED: ACETAMINOPHEN 325 MG TABLET PO PRN (14:46)
[2024-06-04] MEDS ORDERED: HYDROMORPHONE HCL 1 MG/ML INJ ONE (15:00)
--- NOTE | 2024-06-04 15:48 | P.HP ---
Certification for Inpatient Patient admitted to: Inpatient With expected LOS: >2 Midnights Patient will require the following post-hospital care: None Practitioner: I am a practitioner with admitting privileges, knowledge of patient current condition, hospital course, and medical plan of care. Services: Services provided to patient in accordance with Admission requirements found in Title 42 Section 412.3 of the Code of Federal Regulations Patient History Date of Service: 06/04/24 Reason for admission: Left inguinal pain History of Present Illness: 54-year-old male with history of EtOH cirrhosis, asthma, mated for 2-month history of left inguinal pain. Pain described as severe and intermittent, and associated with occasional nausea and vomiting. At the ER at [facility], CT of abdomen/pelvis showed evidence of left inguinal hernia with acetic fluid extending into the scrotum. General surgery has been consulted, and surgery scheduled tomorrow Allergies ketorolac [From Toradol] Allergy (Verified 04/28/23 22:45) Hives/Rash cyclobenzaprine [From Flexeril] Adverse Reaction (Verified 04/29/23 07:38) Nausea/Vomiting Home Medications: Acetaminophen [Tylenol*] 650 mg PO Q4HP PRN tab 05/02/23 Ondansetron [Zofran] 4 mg PO Q6H PRN #30 tab 05/02/23 Tramadol HCl 100 mg PO QID PRN 7 Days #28 tab 05/02/23 traMADol HCL [Ultram*] 50 mg PO Q6H PRN #30 tab 05/02/23 - Past Medical/Surgical History Diabetic: No -: Asthma, EtOH cirrhosis -: Left foot surgery, cholecystectomy - Social History Alcohol use: Yes Review of Systems General: Unremarkable Eyes: Unremarkable ENT: Unremarkable Respiratory: Unremarkable Cardiovascular: Unremarkable Gastrointestinal: Other (Left inguinal pain) Genitourinary: Other (Left groin pain) Physical Examination - Vital Signs Temperature: 97.2 F Blood Pressure: 127/95 Pulse: 87 Respirations: 16 Pulse Ox (%): 100 - Physical Exam General: Alert HEENT: Atraumatic Neck: Supple Respiratory: Clear to auscultation bilaterally Cardiovascular: No edema, Regular rate/rhythm, Normal S1 S2 Gastrointestinal: Normal bowel sounds Musculoskeletal: No clubbing, No swelling, Clubbing Neurological: Normal strength at 5/5 x4 extr External genitalia: Other (Left inguinal hernia extending to the left scrotum. Mild tender to palpation) - Studies Laboratory Data (last 24 hrs) 06/04/24 06/04/24 13:10 13:10 WBC 5.50 Hgb 15.0 Hct 43.5 Plt Count 147 L Sodium 139 Potassium 4.3 BUN 9 Creatinine 0.89 Glucose 94 Total Bilirubin 1.0 AST 109 H ALT 68 H Alkaline Phosphatase 93 Lipase 47 Assessment and Plan - Plan 1. Left inguinal hernia -Associated with severe pain, nausea and vomiting -Also seen on CT of abdomen/pelvis which shows a left inguinal hernia with ascites fluid extending into the scrotum -General Surgery consulted : Plan for surgery tomorrow morning -On as needed morphine for pain -N.p.o. after midnight in anticipation for surgery 2. History of EtOH cirrhosis -Patient still actively drinking -Cessation advised 3. History of asthma -Stable, no acute issues Discussed with patient, he wants to be full code - Advance Directives Does patient have a Living Will: No Does patient have a Durable POA for Healthcare: No
[2024-06-04] MEDS: NICOTINE 14 MG/PAT TD SCH (16:14)
[2024-06-04] MEDS: ENOXAPARIN 40 MG/0.4 ML SQ SCH (16:14)
[2024-06-04 18:14] LABS: PT Prothrombin Time 14.5 SECONDS (9.4-12.5); Protime INR 1.39
[2024-06-04] MEDS: MORPHINE 2 MG/ML SYR IV PRN (18:18)
[2024-06-04] MEDS: ONDANSETRON 4 MG/2 ML VIAL IV PRN (18:18)
[2024-06-04] MEDS ORDERED: SODIUM CHLORIDE 0.9% 10ML INJ IV PRN ×2 (18:19→19:25)
[2024-06-04] MEDS ORDERED: PANTOPRAZOLE 40 MG INJ IVP SCH (18:30)
[2024-06-04] MEDS: NA CHLORIDE 0.9% 1,000 ML IV SCH (18:56)
[2024-06-04 19:02] LABS: Absolute Basophils 0.1 K/uL (0-0.5); Absolute Eosinophils 0.1 K/uL (0-0.5); Absolute Monocytes 0.9 K/uL (0.1-1.3); Absolute Neutrophil 7.4 K/uL (1.8-8.0); Basophils % 1.1 % (0-1.3); Eosinophils % 1.1 % (0-4.4); Hematocrit 43.4 % (39.6-49.0); Hemoglobin 14.8 g/dL (13.6-17.9); Lymphocytes % 19.1 % (15.3-44.8); MCH 33.5 pg (27.0-35.0); MCV 98.6 fL (80-100); MPV 8.2 fL (7.6-11.3); Monocytes % 8.3 % (3.3-12.3); Neutrophils % 70.4 % (41.7-73.7); Platelets 159 thou/uL (152-406); RBC Red Blood Cell Count 4.41 M/uL (4.33-5.43); Red Cell Distribution Width 16.6 % (12.1-15.2)
[2024-06-04] MEDS: PANTOPRAZOLE INJ 80 MG in NA CHLORIDE 0.9% 250 ML IV SCH (19:02)
[2024-06-04] MEDS: PANTOPRAZOLE 40 MG INJ IVP ONE (19:36)
[2024-06-04] MEDS: NA CHLORIDE 0.9% 250 ML ONE (20:29)
[2024-06-05] MEDS: OCTREOTIDE ACETATE 100 MCG/ML IV ONE (00:17)
[2024-06-05] MEDS: PROMETHAZINE INJ 25 MG/ML AMP IV ONE (00:17)
[2024-06-05] MEDS: OCTREOTIDE 500 MCG in NA CHLORIDE 0.9% 500 ML IV SCH ×2 (00:17→12:08)
[2024-06-05] MEDS: CEFTRIAXONE 1,000 MG in NA CHLORIDE 0.9% 50 ML IVPB ONE (02:23)
[2024-06-05 03:01] VITALS: BMI 19.5
[2024-06-05] MEDS: CEFTRIAXONE 1,000 MG in NA CHLORIDE 0.9% 50 ML IVPB SCH (08:36)
[2024-06-05 09:33] LABS: Albumin 2.6 g/dL (3.4-5.0); Anion Gap 8.5 mEq/L (5.0-15.0); Bilirubin Total 1.9 mg/dL (0.2-1.0); Globulin 2.6 g/dL (2.3-3.5); Magnesium 1.5 mg/dL (1.6-2.4); Potassium 4.5 mEq/L (3.5-5.1); Protein, Total 5.2 g/dL (6.4-8.2)
[2024-06-05 09:54] LABS: Absolute Basophils 0.1 K/uL (0-0.5); Absolute Eosinophils 0.1 K/uL (0-0.5); Absolute Lymphocytes (CBC) 2.2 K/uL (0.7-4.9); Absolute Monocytes 0.6 K/uL (0.1-1.3); Absolute Neutrophil 5.2 K/uL (1.8-8.0); Basophils % 0.9 % (0-1.3); Eosinophils % 0.7 % (0-4.4); Hematocrit 22.1 % (39.6-49.0); Hemoglobin 7.5 g/dL (13.6-17.9); Lymphocytes % 27.1 % (15.3-44.8); MCH 32.4 pg (27.0-35.0); MCV 95.4 fL (80-100); MPV 8.1 fL (7.6-11.3); Monocytes % 7.2 % (3.3-12.3); Neutrophils % 64.1 % (41.7-73.7); Nucleated Red Blood Cells % 0.1 % (0-0); Platelets 87 thou/uL (152-406); RBC Red Blood Cell Count 2.32 M/uL (4.33-5.43); Red Cell Distribution Width 16.7 % (12.1-15.2)
[2024-06-05] MEDS ORDERED: NA CHLORIDE 0.9% 2,000 ML IV SCH (11:00)
[2024-06-05] MEDS ORDERED: SODIUM CHL 0.9% 1000 ML BAG IV SCH (11:00)
[2024-06-05 12:18] LABS: Platelet Estimate DECR; White Blood Cell Scan OK (OK)
[2024-06-05 12:19] LABS: Blood Morphology Comment NOT SEEN (NOT SEEN)
[2024-06-05] MEDS: NA CHLORIDE 0.9% 1,000 ML ONE (12:34)
--- NOTE | 2024-06-05 13:02 | P.PN ---
Subjective Date of Service: 06/05/24 Chief Complaint: Left inguinal pain Patient still having GI bleed, multiple episodes of hematochezia when he went to the restroom. SBP was down to the 70s so transferred to the ICU. Ordered additional treatments of PRBCs and 2 L bolus of NS. Currently octreotide and Protonix gtt. Also on Rocephin for SBP prophylaxis. Review of Systems General: Unremarkable Eyes: Unremarkable ENT: Unremarkable Respiratory: Unremarkable Cardiovascular: Unremarkable Gastrointestinal: Hematochezia Genitourinary: Unremarkable Musculoskeletal: Unremarkable Neurological: Unremarkable Physical Examination - Vital Signs Temperature: 98.5 F Blood Pressure: 117/72 Pulse: 102 Respirations: 14 Pulse Ox (%): 100 - Physical Exam General: Oriented x3 HEENT: Atraumatic Neck: Supple Respiratory: Clear to auscultation bilaterally Cardiovascular: No edema Gastrointestinal: Normal bowel sounds Musculoskeletal: No clubbing Neurological: Normal gait - Studies Laboratory Data (last 24 hrs) 06/04/24 06/04/24 13:10 13:10 WBC 5.50 Hgb 15.0 Hct 43.5 Plt Count 147 L Sodium 139 Potassium 4.3 BUN 9 Creatinine 0.89 Glucose 94 Total Bilirubin 1.0 AST 109 H ALT 68 H Alkaline Phosphatase 93 Lipase 47 Assessment And Plan - Plan 1. Left inguinal hernia -Also seen on CT of abdomen/pelvis which shows a left inguinal hernia with ascites fluid extending into the scrotum -General Surgery consulted : Initial plan was for surgery today but in light of active GI bleed,, surgery was canceled -Outpatient follow-up with general surgery when acute issues resolved 2. Acute blood loss anemia secondary to GI bleed -Has cirrhosis, active drinking and taking NSAIDs almost on a daily basis -Patient has had multiple episodes of hematochezia and hematemesis -Initial hemoglobin on admission was 15, currently at 7.5 -Was transfused 2 units of PRBCs yesterday, ordered additional 3 units today in light of active bleed -On octreotide and Protonix gtt. -On Rocephin for SBP prophylaxis 3. Hypovolemic shock secondary to GI bleed -SBP in the 70s and tachycardic -Currently on IV fluids -Already received 2 units of PRBCs, will transfuse additional 2 units of PRBCs -Continue NS fluid boluses Discussed with patient, he wants to be full code Discharge Plan: Transfer Plan to discharge in: 72 Hours
[2024-06-05] MEDS ORDERED: MORPHINE 2 MG/ML SYR IV PRN (13:19)
[2024-06-05] MEDS ORDERED: ONDANSETRON 4 MG/2 ML VIAL IV PRN (13:20)
[2024-06-05] MEDS: OCTREOTIDE ACETATE 100 MCG/ML IV SCH (14:00)
[2024-06-05] MEDS: PANTOPRAZOLE INJ 80 MG in NA CHLORIDE 0.9% 250 ML IV SCH (14:09)
[2024-06-05] MEDS: NA CHLORIDE 0.9% 100 ML ONE (14:13)
[2024-06-05] MEDS ORDERED: NA CHLORIDE 0.9% 250 ML ONE ×2 (14:38→18:15)
[2024-06-05] MEDS ORDERED: NA CHLORIDE 0.9% 250 ML IV SCH (14:39)
[2024-06-05 17:26] LABS: Hematocrit 19.7 % (39.6-49.0); Hemoglobin 6.8 g/dL (13.6-17.9); Platelet Estimate DECR; Platelets 47 thou/uL (152-406)
[2024-06-05] MEDS: MORPHINE 2 MG/ML SYR IV PRN (17:59)
[2024-06-05 23:05] LABS: Absolute Lymphocytes (CBC) 1.4 K/uL (0.7-4.9); Absolute Neutrophil 3.4 K/uL (1.8-8.0); Basophils % 0.6 % (0-1.3); Eosinophils % 0.2 % (0-4.4); Hematocrit 21.7 % (39.6-49.0); Hemoglobin 7.4 g/dL (13.6-17.9); Lymphocytes % 24.6 % (15.3-44.8); MCHC 34.1 g/dL (32.0-36.0); MCV 87.9 fL (80-100); MPV 8.7 fL (7.6-11.3); Monocytes % 16.7 % (3.3-12.3); Neutrophils % 57.9 % (41.7-73.7); Nucleated Red Blood Cells % 0.2 % (0-0); Platelets 37 thou/uL (152-406); RBC Red Blood Cell Count 2.47 M/uL (4.33-5.43); Red Cell Distribution Width 17.3 % (12.1-15.2)
[2024-06-06] MEDS: OCTREOTIDE 500 MCG in NA CHLORIDE 0.9% 500 ML IV SCH (00:12)
[2024-06-06 00:59] VITALS: TEMP 99.1
[2024-06-06 01:07] VITALS: O2SAT 100
[2024-06-06 01:22] VITALS: BP 141/79
[2024-06-06 04:15] LABS: White Blood Cell Scan OK (OK)
[2024-06-06 04:16] LABS: Blood Morphology Comment NOT SEEN (NOT SEEN); Platelet Estimate DECR
[2024-06-06] MEDS ORDERED: CEFTRIAXONE 1,000 MG in NA CHLORIDE 0.9% 50 ML IVPB SCH (09:00)
--- NOTE | 2024-06-06 12:38 | P.DS ---
Admission Date: 06/04/24 Discharge Date: 06/06/24 Disposition: TRANSFER TO GENERAL HOSPITAL Discharge Condition: CRITICAL Reason for Admission: Left inguinal pain Brief History of Present Illness: 54-year-old male with history of EtOH cirrhosis, asthma, mated for 2-month history of left inguinal pain. Pain described as severe and intermittent, and associated with occasional nausea and vomiting. At the ER at [facility], CT of abdomen/pelvis showed evidence of left inguinal hernia with ascites fluid extending into the scrotum. General surgery was consulted, and surgery scheduled tomorrow, however the night of admission, patient developed multiple bouts of hematemesis which continued the following day Left inguinal surgery repair was canceled. Of note, on admission, hemoglobin was 15 however this trended down to 7.5 the following day. Patient was initiated on Protonix and octreotide drip, ceftriaxone for SBP prophylaxis. Patient became hypotensive with systolic down to the 70s so patient was transferred to ICU. Transfused a total of 5 units of PRBCs during the course of admission. Also received multiple boluses of NS and was on IV fluids. SBP improved to the low 100s with pulse in the 80s to 90s prior to transfer to outside hospital. There was no GI independent beauty consultant in the hospital at that point so decision was made to transfer patient to an outside hospital. The medical staff made extensive attempts to transfer patient to surrounding hospitals in the [place] area however they were all full, and eventually he was transferred to [facility] on 06/06/2024. At time of discharge hemoglobin was at 7.4 Hospital Course: 54-year-old male with history of EtOH cirrhosis, initially presented with complaints of left inguinal pain. CT of abdomen/pelvis showed evidence of left inguinal hernia with ascites fluid in the left scrotal sac. Patient was seen by Dr. Tovar, who initially plan on doing surgery the following day, on 06/05/2024, however on the night of admission, patient had multiple bouts of significant hematemesis Vital Signs/Physical Exam: Temp Pulse Resp BP Pulse Ox 99.1 F 80 12 141/79 H 100 06/06/24 00:00 06/06/24 01:00 06/06/24 01:00 06/06/24 01:00 06/06/24 01:00 General: Oriented x3 HEENT: Atraumatic Neck: Supple Respiratory: Clear to auscultation bilaterally Cardiovascular: No edema Capillary refill: <2 Seconds Gastrointestinal: Normal bowel sounds Musculoskeletal: No swelling Integumentary: No rashes Neurological: Normal gait, Normal strength at 5/5 x4 extr Laboratory Data at Discharge: WBC 5.80 thou/uL (4.3-10.9) 06/05/24 22:30 Hgb 7.4 g/dL (13.6-17.9) L D 06/05/24 22:30 Hct 21.7 % (39.6-49.0) L 06/05/24 22:30 Plt Count 37 thou/uL (152-406) L 06/05/24 22:30 PT 14.5 SECONDS (9.4-12.5) H 06/04/24 17:56 INR 1.39 06/04/24 17:56 Sodium 141 mEq/L (136-145) 06/05/24 09:04 Potassium 4.5 mEq/L (3.5-5.1) 06/05/24 09:04 BUN 14 mg/dL (7-18) 06/05/24 09:04 Creatinine 1.08 mg/dL (0.70-1.30) 06/05/24 09:04 Glucose 186 mg/dL (74-106) H 06/05/24 09:04 Magnesium 1.5 mg/dL (1.6-2.4) L 06/05/24 09:04 Total Bilirubin 1.9 mg/dL (0.2-1.0) H 06/05/24 09:04 AST 70 U/L (15-37) H 06/05/24 09:04 ALT 54 U/L (16-61) 06/05/24 09:04 Alkaline Phosphatase 74 U/L (45-117) D 06/05/24 09:04 Lipase 47 U/L (13-75) 06/04/24 13:10 Diet: Regular Activity: Ad britton Followup: Danilo Young DO [Primary Care Provider] -
== END 2024-06-06 04:03 | disposition short-term general hospital (02) | DRG 393 ==
LOC: ER 12:39 → ERHOLD 14:40 → 4TH 15:00 → 3RD-ICU 06-05 12:02 → UNDODISIN 06-06 02:00
PROVIDERS: ADMIT Internal Medicine; ATTEND Internal Medicine
PROC: 30233N1 Transfusion of Nonautologous Red Blood Cells into Peripheral Vein, Percutaneous Approach (ICD-10-PCS; principal; 2024-06-04)
DX: K40.90 Unilateral inguinal hernia, without obstruction or gangrene, not specified as recurrent (principal); R57.1 Hypovolemic shock; D62 Acute posthemorrhagic anemia; K92.0 Hematemesis; K92.1 Melena; R18.8 Other ascites; K70.30 Alcoholic cirrhosis of liver without ascites; J45.909 Unspecified asthma, uncomplicated; F17.210 Nicotine dependence, cigarettes, uncomplicated; Z88.5 Allergy status to narcotic agent; Z88.1 Allergy status to other antibiotic agents; Z90.49 Acquired absence of other specified parts of digestive tract; Z79.899 Other long term (current) drug therapy
CPT/HCPCS: 36415; 36430; 74177; 80053; 83690; 83735; 85014; 85018; 85025; 85049; 85610; 86850; 86900; 86901; 86920; 96374; 96375; 99285; J0696; J1171; J1650; J2270; J2354; J2405; J2470; J2550; J7030; J7040; J7050; P9016; Q9967

== ENCOUNTER 2024-08-12 20:47 | Emergency (ER) | payer OTHER ==
[2024-08-12] MEDS ORDERED: ONDANSETRON 4 MG/2 ML VIAL ONE (21:55)
[2024-08-12] MEDS ORDERED: FENTANYL CITR 100 MCG/2 ML ONE (21:55)
[2024-08-12 22:07] LABS: Absolute Basophils 0.1 K/uL (0-0.5); Absolute Eosinophils 0.1 K/uL (0-0.5); Absolute Monocytes 0.3 K/uL (0.1-1.3); Basophils % 1.9 % (0-1.3); Eosinophils % 2.8 % (0-4.4); Hematocrit 41.3 % (39.6-49.0); Hemoglobin 13.9 g/dL (13.6-17.9); Lymphocytes % 43.2 % (15.3-44.8); MCH 27.7 pg (27.0-35.0); MCHC 33.6 g/dL (32.0-36.0); MCV 82.5 fL (80-100); MPV 8.2 fL (7.6-11.3); Monocytes % 7.5 % (3.3-12.3); Neutrophils % 44.6 % (41.7-73.7); Platelets 138 thou/uL (152-406); RBC Red Blood Cell Count 5.01 M/uL (4.33-5.43); Red Cell Distribution Width 25.3 % (12.1-15.2)
[2024-08-12 22:08] LABS: Anisocytosis 3+; Blood Morphology Comment NOTED (NOT SEEN); Platelet Estimate DECR; Platelets, Giant PRESENT; White Blood Cell Scan OK (OK)
[2024-08-12 22:23] LABS: Albumin 4.4 g/dL (3.4-5.0); Anion Gap 11.9 mEq/L (5.0-15.0); Bilirubin Total 1.3 mg/dL (0.2-1.0); Globulin 4.6 g/dL (2.3-3.5); Potassium 3.9 mEq/L (3.5-5.1)
--- NOTE | 2024-08-12 23:53 | RAD REPORT ---
EXAM DESCRIPTION: Abdomen Pelvis W Contrast CLINICAL HISTORY: 54 years Male, HERNIA TECHNIQUE: Helical CT axial images are obtained from the lung bases to the pubic symphysis with IV co ntrast. No oral contrast was administered. Multiplanar reconstruction. This exam was performed according to our departmental dose-optimization program, which includes automated exposure control, a djustment of the mA and/or kV according to patient size and/or use of iterative reconstruction technique. COMPARISON: None. FINDINGS: LUNG BASES: No basilar consolidation or effusions. LIVER: Hepatomegaly. Moderate diffuse decreased attenuation. No focal masses. HEPATOBILIARY: Status post cholecystectomy. No intra- or extrahepatic ductal dilatation. SPLEEN: Normal size. PANCREAS: Normal size and contour. No focal mass. ADRENAL GLANDS: Normal size. No adrenal masses. KIDNEYS: Bilateral kidneys are normal in size without obstructing calculi or hydronephrosis. No nep hrolithiasis. No significant cysts are present. No focal solid mass. BOWEL AND MESENTERY: Small volume ascites. No small or large bowel dilatation. No colonic diverticulo sis. Normal appendix. No abnormal mesenteric lymphadenopathy. No pneumoperitoneum. RETROPERITONEUM: Normal caliber abdominal aorta without aneurysm. Mild ASVD. No abnormal retroperit meier lymphadenopathy. PELVIS: Urinary bladder is mildly distended. Normal-sized prostate gland. ABDOMINAL WALL: Small left inguinal hernia which is fluid-filled extending into the scrotum. BONES: No suspicious osseous lytic or blastic lesions seen. IMPRESSION: 1. Small left inguinal hernia which is fluid-filled extending into the scrotum. 2. Small volume ascites. 3. Hepatomegaly with moderate steatosis. 4. Status post cholecystectomy. Electronically signed by: Buster Ball MD 08/12/2024 11:13 PM CDT N Due to temporary technical issues with the PACS/[employer] reporting system, reports are being barbie d by the in-house radiologist without review as a courtesy to ensure prompt reporting the interpreting radiologist is fully responsible for the content of the report. Transcribed Date/Time: 08/12/2024 11:53 PM
--- NOTE | 2024-08-13 00:22 | ER ---
Nurse's Notes [facility] Name: Larry Whitaker Age: 54 yrs Sex: Male : 1970 Arrival Date: 08/12/2024 Time: 20:47 Bed 7 Private MD: Diagnosis: Unilateral inguinal hernia, without obstruction or gangrene Presentation: 08/12 21:02 Chief complaint: Spouse and/or significant other states: his hernias are bad again , iw they are in his groin and testicles, and his testicles got more swollen. Coronavirus screen: At this time, the client does not indicate any symptoms associated with coronavirus-19. Ebola Screen: No symptoms or risks identified at this time. 21:02 Method Of Arrival: Ambulatory iw 21:03 Initial Sepsis Screen: Does the patient meet any 2 criteria? No. Patient's initial iw sepsis screen is negative. Does the patient have a suspected source of infection? No. Patient's initial sepsis screen is negative. Risk Assessment: Do you want to hurt yourself or someone else? Patient reports no desire to harm self or others. Onset of symptoms was December 2023. 21:03 Acuity: JOSE 3 iw Historical: - Allergies: 21:03 Cyclobenzaprine; iw 21:03 Toradol; iw 21:03 Norflex; iw - PMHx: 21:03 Asthma; iw - PSHx: 21:03 Cholecystectomy; Foot - Left; iw - Immunization history:: Adult Immunizations. - Infectious Disease History:: Denies. - Social history:: Smoking status: Patient reports the use of cigarette tobacco products, smokes one-half pack cigarettes per day. Screenin:13 [facility] ED Fall Risk Assessment (Adult) History of falling in the last 3 months, al5 including since admission No falls in past 3 months (0 pts) Confusion or Disorientation No (0 pts) Intoxicated or Sedated No (0 pts) Impaired Gait Yes (1 pt) Mobility Assist Device Used Yes (1 pt) Altered Elimination No (0 pt) Score/Fall Risk Level 0 - 2 = Low Risk Oriented to surroundings, Maintained a safe environment, Hourly rounding (assess needs \T\ fall precautionary measures) done. Abuse screen: Denies threats or abuse. Denies injuries from another. Nutritional screening: No deficits noted. Tuberculosis screening: No symptoms or risk factors identified. Assessment: 22:11 General: Appears in no apparent distress. uncomfortable, Behavior is calm, cooperative. al5 Pain: Complains of pain in umbilical area and left inguinal area and right inguinal area Pain currently is 10 out of 10 on a pain scale. Neuro: Level of Consciousness is awake, alert, obeys commands, Oriented to person, place, time, situation. Cardiovascular: Capillary refill < 3 seconds Patient's skin is warm and dry. Respiratory: Airway is patent Respiratory effort is even, unlabored, Respiratory pattern is regular, symmetrical. GI: Abdomen is non-distended, Reports lower abdominal pain, groin pain. : No signs and/or symptoms were reported regarding the genitourinary system. EENT: No signs and/or symptoms were reported regarding the EENT system. Derm: Skin is intact, Skin is pink, warm \T\ dry. normal. Musculoskeletal: Reports torn meniscus in R knee that has been an issue since december of last year. 23:40 Reassessment: Patient appears in no apparent distress at this time. No changes from al5 previously documented assessment. Patient and/or family updated on plan of care and expected duration. Pain level reassessed. Patient is alert, oriented x 3, equal unlabored respirations, skin warm/dry/pink. 08/13 00:35 Reassessment: Patient appears in no apparent distress at this time. No changes from al5 previously documented assessment. Patient and/or family updated on plan of care and expected duration. Pain level reassessed. Patient is alert, oriented x 3, equal unlabored respirations, skin warm/dry/pink. 01:15 Reassessment: Patient appears in no apparent distress at this time. Patient and/or al5 family updated on plan of care and expected duration. Pain level reassessed. Patient is alert, oriented x 3, equal unlabored respirations, skin warm/dry/pink. Patient states feeling better. Vital Signs: 08/12 21:02 BP 120 / 91; Pulse 91; Resp 16; Temp 97.6(O); Pulse Ox 100% on R/A; Weight 69.4 kg; iw Height 6 ft. 1 in. ; Pain 10/10; 22:14 BP 129 / 98; Pulse 78; Resp 18; Pulse Ox 100% ; al5 22:30 BP 134 / 93; Pulse 77; Resp 20; Pulse Ox 95% on R/A; al5 23:00 BP 114 / 77; Pulse 79; Resp 18; Pulse Ox 100% ; al5 23:30 BP 111 / 68; Pulse 80; Resp 18; Pulse Ox 94% ; al5 08/13 00:00 BP 129 / 84; Pulse 76; Resp 17; Pulse Ox 99% ; al5 00:30 BP 106 / 88; Pulse 79; Resp 16; Pulse Ox 99% ; al5 01:00 BP 119 / 81; Pulse 86; Resp 16; Pulse Ox 98% ; al5 08/12 21:02 Body Mass Index 20.19 (69.40 kg, 185.42 cm) iw 08/12 21:02 Pain Scale: Adult iw ED Course: 08/12 20:49 Patient arrived in ED. [email or web address] 21:03 Triage completed. iw 21:04 Arm band placed on. iw 21:05 Deborah Escalante MD is Attending Physician. sw6 21:53 Neva Chau RN is Primary Nurse. al5 21:57 Inserted saline lock: 20 gauge in right antecubital area, using aseptic technique. kmf Blood collected. Flushed with 10 mL NS. 22:13 Patient has correct armband on for positive identification. Bed in low position. Call al5 light in reach. Side rails up X2. significant other at bedside. Provided Education on: plan of care, medications. 22:13 No provider procedures requiring assistance completed. al5 22:53 CT Abd/Pelvis - IV Contrast Only In Process Unspecified. EDMS 08/13 01:17 IV discontinued, intact, bleeding controlled, No redness/swelling at site. Pressure al5 dressing applied. Administered Medications: 08/12 22:14 Drug: fentaNYL (PF) IVP 50 mcg IVP once Route: IVP; Site: right antecubital; al5 23:38 Follow up: Response: No adverse reaction; No adverse reaction; pain decreased but pain al5 still pressent 22:14 Drug: Ondansetron IVP 4 mg IVP once; over 2 minutes Route: IVP; Site: right antecubital;al5 23:38 Follow up: Response: No adverse reaction al5 08/13 00:51 Drug: fentaNYL (PF) IVP 50 mcg IVP once Route: IVP; Site: right antecubital; al5 01:14 Follow up: Response: No adverse reaction; Pain is decreased al5 Medication: 08/12 22:13 VIS not applicable for this client. al5 Outcome: 08/13 00:21 Discharge ordered by . juan [email or web address] 01:17 Discharged to home via wheelchair, with significant other, al5 01:17 Condition: stable 01:17 Discharge instructions given to patient, Instructed on discharge instructions, follow up and referral plans. medication usage, Demonstrated understanding of instructions, follow-up care, medications, Prescriptions given X 1, 01:17 Patient left the ED. al5 Signatures: Dispatcher [employer] EDNirmala Blunt RN RN iw Michelle Marsh [facility] Deborah Escalante MD MD sw6 Neva Chau RN RN al5 Corrections: (The following items were deleted from the chart) 08/12 21:04 21:02 BP 120 / 91; Pulse 91bpm; Resp 16bpm; Pulse Ox 100% RA; iw iw 21:05 21:02 BP 120 / 91; Pulse 91bpm; Resp 16bpm; Pulse Ox 100% RA; 69.4 kg; Height 6 ft. 1 iw in.; BMI: 20.1; Pain 10/10, Adult; iw
--- NOTE | 2024-08-13 00:22 | EDPHYS ---
Physician Documentation [facility] Name: Larry Whitaker Age: 54 yrs Sex: Male : 1970 Arrival Date: 08/12/2024 Time: 20:47 Bed 7 Private MD: LEDA Physician Deborah Escalante HPI: 08/12 21:16 This 54 yrs old Male presents to ER via Ambulatory with complaints of sw6 Testicular Pain, Testicular Swelling, Nausea/Vomiting. 21:16 The patient presents with Bilateral inguinal hernia pain. Onset: The symptoms/episode sw6 began/occurred Several months ago but getting worse. Modifying factors: the symptoms are aggravated by Bearing down and straining to have a bowel movement. Associated signs and symptoms: Pertinent positives: dysuria, nausea, Pertinent negatives: constipation, diarrhea, fever, hematuria. Severity of symptoms: At their worst the symptoms were moderate, in the emergency department the symptoms are actually worse. The patient has experienced similar episodes in the past, multiple times, chronically. The patient presents from home with his for evaluation for bilateral inguinal pain from known inguinal hernias he has had for quite some time. He was taking methocarbamol for his pain but last had a dose on July 28. He reports he has not been able to get to the doctor's office in [place] due to transportation issues. Today he did have some whiskey as well as the tramadol he got from his and he reports that has not helped with his pain. He has had intermittent nausea but no vomiting. No fevers or chills. He reports his urine does smell foul. He reports he was seen by a surgeon here back in May who wanted to repair his bilateral hernias however he had an esophageal rupture and was transferred out for that. Since that repair he has not followed up with the surgeon here in [place]. No history of high blood pressure or diabetes. No chest pain or pressure. No shortness of breath. Here for evaluation.. Historical: - Allergies: 21:03 Cyclobenzaprine; iw 21:03 Toradol; iw 21:03 Norflex; iw - PMHx: 21:03 Asthma; iw - PSHx: 21:03 Cholecystectomy; Foot - Left; iw - Immunization history:: Adult Immunizations. - Infectious Disease History:: Denies. - Social history:: Smoking status: Patient reports the use of cigarette tobacco products, smokes one-half pack cigarettes per day. ROS: 21:16 Constitutional: Negative for fever, chills, and weight loss, Cardiovascular: Negative sw6 for chest pain, palpitations, and edema, Respiratory: Negative for shortness of breath, cough, wheezing, and pleuritic chest pain, MS/Extremity: Negative for injury and deformity, Skin: Negative for injury, rash, and discoloration, 21:16 Abdomen/GI: Positive for abdominal pain, nausea, Negative for vomiting, diarrhea, constipation, 21:16 : Positive for foul smelling urine, Bilateral groin pain, 21:16 All other systems are negative, Exam: 21:16 Constitutional: This is a well developed, well nourished patient who is awake, alert, sw6 and in no acute distress. Chest/axilla: Normal chest wall appearance and motion. Nontender with no deformity. No lesions are appreciated. Cardiovascular: Regular rate and rhythm with a normal S1 and S2. No gallops, murmurs, or rubs. Normal PMI, no JVD. No pulse deficits. Respiratory: Lungs have equal breath sounds bilaterally, clear to auscultation and percussion. No rales, rhonchi or wheezes noted. No increased work of breathing, no retractions or nasal flaring. 21:16 Head/Face: Normocephalic, atraumatic. Skin: Warm, dry with normal turgor. Normal color with no rashes, no lesions, and no evidence of cellulitis. Psych: Awake, alert, with orientation to person, place and time. Behavior, mood, and affect are within normal limits. 21:16 Abdomen/GI: Palpation: soft, mild abdominal tenderness, in all quadrants, mass, is not appreciated, rebound tenderness, is not appreciated, Hernia: noted in the left inguinal area, 21:16 : Male external genitalia: normal, no swelling, Vital Signs: 21:02 BP 120 / 91; Pulse 91; Resp 16; Temp 97.6(O); Pulse Ox 100% on R/A; Weight 69.4 kg; iw Height 6 ft. 1 in. ; Pain 10/10; 22:14 BP 129 / 98; Pulse 78; Resp 18; Pulse Ox 100% ; al5 22:30 BP 134 / 93; Pulse 77; Resp 20; Pulse Ox 95% on R/A; al5 23:00 BP 114 / 77; Pulse 79; Resp 18; Pulse Ox 100% ; al5 23:30 BP 111 / 68; Pulse 80; Resp 18; Pulse Ox 94% ; ky5 08/13 00:00 BP 129 / 84; Pulse 76; Resp 17; Pulse Ox 99% ; al5 00:30 BP 106 / 88; Pulse 79; Resp 16; Pulse Ox 99% ; al5 01:00 BP 119 / 81; Pulse 86; Resp 16; Pulse Ox 98% ; ky5 08/12 21:02 Body Mass Index 20.19 (69.40 kg, 185.42 cm) iw 08/12 21:02 Pain Scale: Adult iw MDM: 08/12 21:15 Medical Screening Exam initiated 21:16 Differential diagnosis: nonspecific abdominal pain, UTI, Inguinal hernia, strangulated sw6 hernia, incarcerated hernia. Data reviewed: vital signs, nurses notes. 08/13 00:17 Data reviewed: lab test result(s), radiologic studies, CT scan. ED course: Patient is sw doing well from ER. His pain is improved with administration of medication listed above. His laboratory studies are unremarkable. A CT of his abdomen pelvis shows small amount of ascites as well as a left inguinal hernia without any signs of strangulation or incarceration. Recommend he wear a hernia belt for comfort and that he follow-up with his surgeon for elective outpatient repair of his inguinal hernia. He remained stable here in the ER and is okay for discharge home with PCP follow-up.. 08/12 21:16 Order name: CBC with Diff; Complete Time: 23:19 [facility] 08/12 23:19 Interpretation: Within normal limits. [facility] 08/12 21:16 Order name: CMP; Complete Time: 23:19 [facility] 08/12 23:19 Interpretation: Abnormal: HYPERBILIRUBINEMIA. [facility] 08/12 21:16 Order name: Lipase; Complete Time: 23:19 [facility] 08/12 23:19 Interpretation: Within normal limits. [facility] 08/12 22:08 Order name: CBC Smear Scan; Complete Time: 23:19 EDMS 08/12 23:20 Interpretation: Within normal limits. [facility] 08/12 21:16 Order name: CT Abd/Pelvis - IV Contrast Only [facility] 08/13 00:10 Interpretation: Abnormal: Inguinal hernia. [facility] 08/12 21:16 Order name: IV Saline Lock; Complete Time: 21:53 sw6 08/12 21:16 Order name: Labs collected and sent; Complete Time: 21:53 Administered Medications: 08/12 22:14 Drug: fentaNYL (PF) IVP 50 mcg IVP once Route: IVP; Site: right antecubital; al5 23:38 Follow up: Response: No adverse reaction; No adverse reaction; pain decreased but pain al5 still pressent 22:14 Drug: Ondansetron IVP 4 mg IVP once; over 2 minutes Route: IVP; Site: right antecubital;al5 23:38 Follow up: Response: No adverse reaction al5 08/13 00:51 Drug: fentaNYL (PF) IVP 50 mcg IVP once Route: IVP; Site: right antecubital; al5 01:14 Follow up: Response: No adverse reaction; Pain is decreased al5 Disposition Summary: 08/13/24 00:21 Discharge Ordered Notes: Location: Home [facility] Problem: chronic sw6 Symptoms: have improved sw6 Condition: Stable sw6 Diagnosis - Unilateral inguinal hernia, without obstruction or gangrene sw6 Discharge Instructions: - Discharge Summary Sheet sw6 - Inguinal Hernia, Adult, [id number] sw6 - Inguinal Hernia, Adult sw6 Forms: - Medication Reconciliation Form sw6 - Antibiotic Education sw6 - Prescription Opioid Use sw6 - Patient Portal Instructions sw6 - Leadership Thank You Letter 6 Prescriptions: - methocarbamol 750 mg Oral tablet - take 1 tablet ORAL route 3 times per day; 24 tablet; Refills: 0, Product 6 Selection Permitted Signatures: Dispatcher [employer] EDNirmala Blunt RN RN iw Cat Nelson RN RN vc1 Deborah Escalante MD MD 6 Neva Chau RN RN al5 Corrections: (The following items were deleted from the chart) 00:19 08/12 21:16 : Male external genitalia: sw6 08/13 00:19 08/12 21:16 Abdomen/GI: Palpation: soft, mild abdominal tenderness, in all quadrants, sw6 mass, is not appreciated, rebound tenderness, is not appreciated, Hernia: noted in the right inguinal area and left inguinal area, sw6
[2024-08-13] MEDS ORDERED: FENTANYL CITR 100 MCG/2 ML ONE (00:48)
[2024-08-13 01:31] VITALS: TEMP 97.6
[2024-08-13 01:48] VITALS: BP 119/81; O2SAT 98
== END 2024-08-13 01:17 | disposition home or self-care (01) ==
LOC: ER 20:47
DX: K40.90 Unilateral inguinal hernia, without obstruction or gangrene, not specified as recurrent (principal); F17.210 Nicotine dependence, cigarettes, uncomplicated
CPT/HCPCS: 85025; 36415; 83690; 80053; 74177; 96375; 96374; 99284; Q9967; J3010 ×2; J2405